=== PATIENT | male | born 1955 | race Caucasian/White ===

== ENCOUNTER 2022-04-10 10:19 | Outpatient (CLI) | payer MEDICARE, SELFPAY ==
[2022-04-10 21:50] LABS: Albumin* 4.3 g/dL (3.3-5.0); Chloride* 99 mmol/L (96-114)
[2022-04-10 21:51] LABS: Sodium* 138 mmol/L (135-149)
[2022-04-10 21:53] LABS: Carbon Dioxide* 30 mmol/L (20-32); Cholesterol* 125 mg/dL (90-199); Creatinine* 0.9 mg/dL (0.5-1.5); Estimated Glomerular Filt Rate 94 ml/min
[2022-04-10 21:54] LABS: Alanine Aminotransferase* 43 U/L (4-50); Alkaline Phosphatase* 62 U/L (40-150); Aspartate Amino Transferase* 35 U/L (12-35); Bilirubin Total* 0.6 mg/dL (0.1-1.5); Blood Urea Nitrogen* 12 mg/dL (7-30); Calcium* 9.7 mg/dL (8.4-10.6); Glucose* 114 mg/dL (60-115); HDL Cholesterol* 46 mg/dL (>=40); LDL Cholesterol Calculated 52 mg/dL (<100); Total Protein* 6.8 g/dL (6.0-8.3); Triglycerides* 135 mg/dL (40-149)
[2022-04-10 22:12] LABS: Creatinine Urine 68.2 mg/dL
[2022-04-10 22:27] LABS: Microalbumin Creatinine Ratio 10 mg/g (0-30); Microalbumin Urine 1 mg/dL
[2022-04-10 22:30] LABS: PSA Diagnostic* < 0.06 ng/mL (0.10-4.00)
== END 2022-04-10 10:20 | disposition home or self-care (01) ==
PROVIDERS: PCP Nurse Practitioner Family; Visit Provider Nurse Practitioner Family
DX: E11.9 Type 2 diabetes mellitus without complications (principal); I10 Essential (primary) hypertension; E78.5 Hyperlipidemia, unspecified; Z85.46 Personal history of malignant neoplasm of prostate
CPT/HCPCS: 80053; 80061; 82043; 82570; 84153; 84443

== ENCOUNTER 2022-10-04 10:21 | Outpatient (CLI) | payer MEDICARE, SELFPAY | END 2022-10-04 10:22 | disposition home or self-care (01) | PROVIDERS: PCP Nurse Practitioner Family; Visit Provider Nurse Practitioner Family | DX: E66.3 Overweight (principal); E56.9 Vitamin deficiency, unspecified; I10 Essential (primary) hypertension; E11.9 Type 2 diabetes mellitus without complications; Z12.5 Encounter for screening for malignant neoplasm of prostate | CPT/HCPCS: 83540; 83550; 84153; 85025 ==

== ENCOUNTER 2023-03-28 13:20 | Outpatient (CLI) | payer MEDICARE, SELFPAY ==
--- OUTSIDE RECORDS SUMMARY | 2023-03-28 13:24 | XMS_ITS ---
Author Name Unknown Organization [place] Address [facility] [place] [address] Care Team Providers Care Office Associate Name Role Phone Clarissa Gomez DO Primary Care Provider [phone] Faustino Cedeno MD Unavailable [phone] Zaida Ayoub APRN [facility] Unavailable Arturo Smith MD Unavailable [phone] Clarissa Gomez DO Unavailable Clarissa Gomez DO Unavailable Active Problems Problem Noted Date Diagnosed Date Sensorineural hearing loss, bilateral 06/20/2015 Adjustment disorder with anxiety 05/24/2015 Overview: May 24, 2015: Diagnosis made and psychosocial and contextual factor of work stress noted. Per note by Lizzy Santiago LP. May 19, 2015: Patient communicated concern over work-related stress and anxiety that has been building up (see telephone encounter). No significant mental health PMHx. Referral provided to behavioral health services by PCP, Britney Phillips MD. July 04, 2015 excellent response to SSRI therapy. Patient will probably discontinue counseling therapy. Continue Lexapro, follow-up in 6 months. Gout 01/12/2015 Diabetes mellitus type 2, controlled, without co mplications 12/16/2014 Overview: December 16, 2014 within guide lines, A1c 7.0, up from 6 months ago, 6.5, on single drug therapy. No secondary complications. Follow up 6 months. SCC (squamous cell carcinoma), face 07/31/2013 Overview: July 31, 2013 on face, followed by dermatology. GERD 02/01/2013 Overview: July 31, 2013 doing well on PPI therapy. EGD done 07/06, biopsies neg. One year refill. Vitamin D deficiency disease 07/20/2011 Overview: August 27, 2012 recheck in 3 months. Encounter for screening for malignant neoplasm o f colon 06/14/2011 Overview: EMERGENCY CARE PLAN Presenting Problem Signs and Symptoms Treatment Plan Questions or conerns during clinic hours I will call the clinic directly Questions or conerns outside clinic hours I will call the 24 hour nurse line at [phone] Patient needs to schedule an appointment I will call the 24 hour scheduling team at [phone] or clinic directly Same day treatment I will call the clinic first, nurse line if after hours, urgent care and express care if needed Overview: Added automatically from request for surgery [id number] Cancer, skin, 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 Coles Hyperlipidemia LDL goal <100 12/25/2009 Overview: January 30, 2013 on statin, LDL 66, repeat lipid panel in 12 months. Hypertension goal BP (blood pressure) < 140/80 0 07/02/2006 Overview: July 31, 2013 within guidelines, denies side effects. On 3 drug therapy, beta yann, diuretic, ARB. GFR: 65, K+: 4.1, microalbuminuria neg. Follow up 6 months. Overweight 07/02/2006 Overview: August 27, 2012 Body mass index is 31.15 kg/(m^2). Problem list name updated by automated process. Provider to review Current Oncology Plans No current plan information found. Past Plans No past plan information found. Radiation Treatments * No radiation treatments are documented for this patient in [facility]. Treatments may have been administered in another system. Treatment Summaries Prostate cancer (H)* Cancer Treatment Plan and Summary - Prostate [facility] General Information Patient Name Alden Bowden Patient 1955 Patient phone [phone] (home) Email [email or web address] Primary Care Provider Clarissa Gomze Christopher Allan, MD Radiation Oncologist N/A Medical Oncologist N/A Other Providers Cancer Diagnosis Information Diagnosis Prostate cancer (H) Diagnosis Date 02/02/2019 Staging Information [id number] Familial Cancer Risk Assessment Genetic Counseling No Treatment Summary Surgery Robot-assisted laparoscopic radical prostatectomy Surgery Date: 07/13/2019 Pathology acinar adenocarcinoma and Thayne Score: 3 + 4 Radiation No Systemic No Ongoing Treatment No *The above summary reflects your cancer treatment as documented in our chart at the time you received this summary. If you had additional treatment at another care center we would advise you to obtain this information from that care center. Follow-up Care Plan Persistent symptoms or side effects at completion of treatment These symptoms may include, but not limited to: fatigue, numbness/tingling, psychosocial, pain, memory/concentration issues, urinary incontinence and erectile dysfunction. Additional provider notes, if applicable Your follow up care plan is designed to inform you and your primary care provider the recommended and suggested follow up, cancer screening and routine health maintenance that is needed to maintain optimal health. Possible late and/or assisted effects that someone with this type of cancer and treatment may experience: bone effects heart effects fertility effects memory and concentration pain lymphedema nervous system changes If you would like to discuss specific late and/or terminal makeup operator effects related to your treatment, please use the following website to make an appointment in the Cancer Survivor Program: [email or web address] OR call These symptoms should be brought to the attention of your provider: 1. Anything that represents a brand new symptom; 2. Anything that represents a persistent symptom; 3. Anything that you are worried about that might be related to your cancer coming back. Coordinating Provider When/How Often Primary Care Provider Please continue to see your primary care provider for all general health carerecommended for a patient your age, including cancer screening tests. Any symptoms should be brought to the attention of your provider. Medical Oncologist and/or Surgeon Every 6 months for 5 years, then yearly Radiation Oncologist As directed Surgeon As directed Other See eye doctor and dentist routinely Cancer Surveillance or Other Recommended Related Tests Test What/When/How Often PSA Every 3 months for 1 year, then every 6 months for years 2-5, then yearly Cancer survivors may experience issues with the areas listed below. If you have any concerns in these or other areas, please speak with your providers or nurses to find out how you can get help with them. Anxiety or depression Emotional and mental health Fatigue Fertility Financial advice or assistance Insurance Lymphedema Memory or concentration loss Parenting Physical functioning School or work Sexual functioning Stopping smoking Weight changes Other A number of lifestyle/behaviors can affect your ongoing health, including the risk for the cancer coming back or developing another cancer. Discuss these recommendations with your provider or nurse: Alcohol use Diet Physical activity Sun screen use Tobacco use/cessation Weight management (loss/gain) Resources you may be interested in: [facility] Survivorship Resources http://survivorship.[facility] [place] [employer] www.cancer.org [place] [employer] of Clinical Oncology www.asco.org/practice-guidelines/resources-patients National Cancer [place] www.cancer.gov [employer] www.livestrong.org www.cancer.net [place] for [employer] Research www.aicr.org This Survivorship Care Plan is a cancer treatment summary and follow up plan and is provided to youto keep with your health care records and to share with your primary care provider or any of your other providers. Resolved Problems Problem Noted Date Diagnosed Date Resolved Date Somatic dysfunction of pelvis region 07/29/2019 10/07/2019 Prostate cancer 04/06/2019 10/07/2019 Overview: Added automatically from request for surgery [id number] Lumbar radiculopathy 03/12/2019 020 Elevated uric acid in blood 09/10/2014 11/07/2020 AK (actinic keratosis) 01/14/200808/27 Acute Gouty Arthropathy 11/13/2007 12/09/2012 Chronic cough relieved with Prevacid 04/03/2007 02/01/2013 Overview: August 04, 2007 Meds: Prevacid - controls cough GERD 07/02/2006 08/27/2012 Overview: April 03, 2007 Meds: Prevacid 30 - consider bid trial for chronic cough When off med - severe reflux and Vomiting
--- OUTSIDE RECORDS SUMMARY | 2023-03-28 13:24 | XMS_ITS | Referral Summary ---
Author Name Unknown Organization [place] Address [address] [place] [address]. [place] [address] Care Team Providers Care Adolescent Specialist Name Role Phone Clarissa Gomez DO Primary Care Provider Faustino Cedeno MD Unavailable [phone] Zaida Ayoub APRN, CNP Unavailable [phone] Arturo mSith MD Unavailable [phone] Clarissa Gomez DO Unavailable Clarissa Gomez DO Unavailable [phone] Allergies No known active allergies Medications Medication Sig Dispensed Refills Start Date End Date Status ASPIRIN 81 MG OR TABS Take 81 mg by mouth every evening 0 Active VITAMIN B-12 PO Take 1 tablet by mouth once a week 0 Active VITAMIN D, CHOLECALCIFEROL, POIndications:Right-s ided low back pain with right-sided sciatica Take 2,000 Units by mouth every evening 0 Active magnesium 500 MG TABS Take 500 mg by mouth once a week 0 Active Ascorbic Acid (VITAMIN C) 500 MG CAPS Take 500 mg by mouth once a week 0 Active glipiZIDE (GLUCOTROL XL) 2.5 MG 24 hr tabletIndications:Con trolled type 2 diabetes mellitus without complication, without long-term current use of insulin (H) TAKE 1 TABLET DAILY 90 tablet 3 05/02/2021 Active allopurinol (ZYLOPRIM) 300 MG tabletIndications:Gou t of multiple sites, unspecified cause, unspecified chronicity Take 1 tablet (300 mg) by mouth daily 90 tablet 3 07/13/2021 Active esomeprazole (NEXIUM) [address] capsuleIndications:Ga stroesophageal reflux disease without esophagitis TAKE 1 CAPSULE DAILY 30 TO 60 MINUTES BEFORE EATING 90 capsule 3 07/13/2021 Active hydrochlorothiazide (HYDRODIURIL) 25 MG tabletIndications:Hyp ertension goal BP (blood pressure) < 140/80 Take 1 tablet (25 mg) by mouth daily 90 tablet 3 07/13/2021 Active irbesartan (AVAPRO) 150 MG tabletIndications:Hyp ertension goal BP (blood pressure) < 140/80 Take 1 tablet (150 mg) by mouth At Bedtime 90 tablet 3 07/13/2021 Active metoprolol succinate ER (TOPROL XL) 100 MG 24 hr tabletIndications:Hyp ertension goal BP (blood pressure) < 140/80 TAKE ONE AND ONE-HALF TABLETS DAILY 135 tablet 3 07/13/2021 Active rosuvastatin (CRESTOR) 20 MG tabletIndications:Hyp erlipidemia LDL goal <100 TAKE 1 TABLET DAILY 90 tablet 3 12/26/2021 Active metFORMIN (GLUCOPHAGE XR) 500 MG 24 hr tabletIndications:Con trolled type 2 diabetes mellitus without complication, without long-term current use of insulin (H) TAKE 2 TABLETS TWICE A DAY 360 tablet 0 01/19/2022 Active Active Problems Problem Noted Date Diagnosed Date [...] call the 24 hour nurse line at [phone] Patient needs to schedule an appointment I will call the 24 hour scheduling team at [phone] or clinic directly Same day treatment I will call the clinic first, nurse line if after hours, urgent care and express care if needed Overview: Added automatically from request for surgery [id number] Cancer, skin, squamous cell - nasal bridge [...] updated by automated process. Provider to review Resolved Problems Problem Noted Date Diagnosed Date Resolved Date Somatic dysfunction of pelvis region 07/29/2019 10/07/2019 Prostate cancer 04/06/2019 10/07/2019 Overview: Added automatically from request for surgery [id number] Lumbar radiculopathy 03/12/2019 020 Elevated uric acid in blood 09/10/2014 11/07/2020 AK (actinic keratosis) 01/14/200808/27 Acute Gouty Arthropathy 11/13/2007 12/09/2012 Chronic cough relieved with Prevacid 04/03/2007 02/01/2013 Overview: August 04, 2007 Meds: Prevacid - controls cough GERD 07/02/2006 08/27/2012 Overview: April 03, 2007 Meds: Prevacid 30 - consider bid trial for chronic cough When off med - severe reflux and Vomiting Immunizations Name Administration Dates Next Due COVID-19 Vaccine (Shay) 05/01/2020 Influenza (IIV3) PF 01/29/2012, 1,02/02/2010,2006 Influenza Vaccine 18-64 (Flublok) 11/19/2018, Influenza Vaccine 65+ (Fluzone HD) 11/19/2020 Influenza Vaccine >6 months,quad, PF ,11/17/2015,11/03/2014,2013,11/05/2012 Influenza Vaccine, 6+MO IM (QUADRIVALENT W/PRESERVATIVES) 11/03/2014 Influenza, seasonal, injectable, PF 01/29/2012,1 04/05/2009,12/14/2008 Pneumo Conj 13-V (2010&after) 09/17/2014 Pneumococcal 23 valent 01/18/2020,02/22/2014 TD,PF 7+ (Tenivac) 07/02/1997 TDAP Vaccine (Adacel) 04/14/2018,04/03/2007 Td (Adult), Adsorbed 06/02/2002 Varicella Pt Report Hx of Varicella/Chicken Pox 04/20/1960 Zoster recombinant adjuvante d (SHINGRIX) 11/19/2018 Zoster vaccine, live 11/17/2015 Social History Tobacco Use Types Packs/Day Years Used Date Smoking Tobacco: Never Smokeless Tobacco: Never Tobacco Cessation:Counseling Given: Yes Alcohol Use Standard Drinks/Week Comments Yes 0 (1 standard drink = 0.6 oz pur e alcohol) occ PHQ-2 Answer Date Recorded PHQ-2 Score 0 07/13/2021 Adolescent Education Answer Date Record ed Getting School Help Needed Not on file 12/11 Sex and Gender Information Value Date Recorded Sex Assigned at Not on file Gender Identity Not on file Sexual Orientation Not on file Last Filed Vital Signs Vital Sign Reading Time Taken Comments Blood Pressure 134/82 07/13/2021 2:07 PM CDT Pulse 85 07/13/2021 2:07 PM CDT Temperature 36.7 ??C (98.1 ??F) 07/13/2021 2:07 PM CD T Respiratory Rate 16 01/18/2020 1:06 PM PROSTHODONTIST/OWNER Oxygen Saturation 98% 07/13/2021 2:07 PM CDT Inhaled Oxygen Concentration - - Weight 88.3 kg (194 lb 9.6 oz) 07/13/2021 2:07 P M CDT Height 166.4 cm (5' 5.5) 07/13/2021 2:07 PM CDT Body Mass Index 31.89 07/13/2021 2:07 PM CDT Plan of Treatment Not on file Advance Directives For more information, please contact: [phone] Latest Code Status on File Code Status Date Activated Date Inactivated Comments Full Code 07/13/2019 4:33 PM 07/15/2019 6:05 PM Question Answer Comments Code status determined by: Discussion wi th patient/legal decision maker Care Teams Adolescent Specialist Relationship Specialty Start Date End Date Clarissa Gomez DO [address] [facility] [place] [address] PCP - General Family Practice 02/14/17 Faustino Cedeno MD [address] [place] [address] Radiation Oncology 02/19/19 Zaida Ayoub APRN AUTOMOTIVE PRODUCT ENGINEER [address] [place] [address] Nurse Practitioner Nurse Practitioner 02/19/19 Arturo Smith MD [address] [facility] [address] [place], [place] [address] Urology 02/19/19 Clarissa Gomez DO [address] [facility] [place] [address] Referring Physician Family Practice 04/06/19 [place] [address] [address] [facility] [place] [address] Assigned PCP 08/14/20
--- OUTSIDE RECORDS SUMMARY | 2023-03-28 13:24 | XMS_ITS | Clinical Summary ---
Author Name Unknown Organization [facility] Address [address] [place] [address]. [place] [address] Care Team Providers Care Health Information Administrator Name Role Phone Clarissa Gomez DO Primary Care Provider [phone] Faustino Cedeno MD Unavailable [phone] Zaida Ayoub APRN, CNP Unavailable Arturo Smith MD Unavailable [phone] Clarissa Gomez DO Unavailable [phone] Clarissa Gomez DO Unavailable [phone] Allergies No known active allergies Medications [...] call the 24 hour nurse line at [phone] Patient needs to schedule an appointment I will call the 24 hour scheduling team at [phone] or clinic directly Same day treatment I will call the clinic first, nurse line if after hours, urgent care and express care if needed Overview: Added automatically from request for surgery [id number] Cancer, skin, squamous cell - nasal bridge [...] Overview: Added automatically from request for surgery [id number] Lumbar radiculopathy 03/12/2019 020 Elevated uric acid in blood 09/10/2014 11/07/2020 AK (actinic keratosis) 01/14/200808/27 Acute Gouty Arthropathy 11/13/2007 12/0 09/2012 Chronic cough relieved with Prevacid 04/03/2007 02/01/2013 [...] d (SHINGRIX) 11/19/2018 Zoster vaccine, live 11/17/2015 Family History Medical History Relation Comments Asthma Father Cirrhosis Father Coronary Artery Disease Maternal Grandfather Coronary Artery Disease Maternal Grandmother Other Cancer Mother C.A.D. Other Cerebrovascular Disease Paternal Grandfather Diabetes Paternal Grandfather Other Cancer Paternal Grandmother Other Cancer Sister Relation Status Comments Father Maternal Grandfather Maternal Grandmother Mother Other Paternal Grandfather Paternal Grandmother Sister Social History Tobacco Use Types Packs/Day Years [...] T Respiratory Rate 16 01/18/2020 1:06 PM SAW REPAIRER Oxygen Saturation 98% 07/13/2021 2:07 PM CDT Inhaled Oxygen Concentration - - Weight 88.3 kg (194 lb 9.6 oz) 07/13/2021 2:07 P M CDT Height 166.4 cm (5' 5.5) 07/13/2021 2:07 PM CDT Body Mass Index 31.89 07/13/2021 2:07 PM CDT Plan of Treatment Health Maintenance Due Date Last Done Comments ANNUAL REVIEW OF HM ORDERS 1955 CT COLONOGRAPHY 1955 FIT 1955 FLEX SIG 1955 sDNA (Cologuard) 1955 RSV VACCINE ( & 60+) (1 - 1-dose 60+ series) 2014 ZOSTER IMMUNIZATION (3 of 3) 01/14/2019 11/19/2018, 11/17/2015 AORTIC ANEURYSM SCREENING (SYSTEM ASSIGNED) 08/03/2019 A1C 11/30/2021 05/31/2021, 09/25, 07/06/2020, Additional history exists BMP 05/31/2022 05/31/2021, 06/25, 10/15/2019, Additional history exists DIABETIC FOOT EXAM 07/13/2022 07/13/2021, 0 07/13/2021, 10/17/2018, Additional history exists FALL RISK ASSESSMENT 07/13/2022 07/13/2021, 07/11/2020, 01/18/2020 LIPID 07/13/2022 07/13/2021, 06/25, 04/24/2019, Additional history exists MEDICARE ANNUAL WELLNESS VISIT 07/13/2022 07/13/2021, 07/11/2020, 09/19/2017, Additional history exists MICROALBUMIN 07/13/2022 07/13/2021, 06/25, 04/24/2019, Additional history exists COLONOSCOPY 08/16/2022 08/16/2017, 01/26, 07/26/2005 COLORECTAL CANCER SCREENING 08/16/2022 COVID-19 Vaccine ( season) 2022 05/01/2020 INFLUENZA VACCINE (#1) 2022 , 11/19/2020, 11/19/2018, Additional history exists PHQ-2 (once per calendar year) 2023 07/13/2021, 07/11/2020, 02/23/2020, Additional history exists EYE EXAM 01/15/2024 01/14/2023, 12/26, 01/08/2022, Additional history exists ADVANCE CARE PLANNING 07/15/2025 07/15/2020, 011 DTAP/TDAP/TD IMMUNIZATION (3 - Td or Tdap) 04/14/2028 04/14/2018, 04/03/2007, 06/02/2002, Additional history exists HEPATITIS C SCREENING Completed 03/04/2017 Pneumococcal Vaccine: 65+ Years Completed 01/18/2020, 09/17/2014, 02/22/2014 HPV IMMUNIZATION Aged Out No longer e ligible based on patient's age to complete this topic IPV IMMUNIZATION Aged Out No longer e ligible based on patient's age to complete this topic MENINGITIS IMMUNIZATION Aged Out No l onger eligible based on patient's age to complete this topic RSV MONOCLONAL ANTIBODY Aged Out No l onger eligible based on patient's age to complete this topic Advance Directives For more information, please contact: [phone] Latest Code Status on File Code Status Date Activated Date Inactivated Comments Full Code 07/13/2019 4:33 PM 07/15/2019 6:05 PM Question Answer Comments Code status determined by: Discussion wi th patient/legal decision maker Care Teams Health Information Administrator Relationship Specialty Start Date End Date Clarissa Gomez DO [address] [facility] [place] [address] PCP - General Family Practice 02/14/17 Faustino Cedeno MD [address] [place] [address] Radiation Oncology 02/19/19 Zaida Ayoub, HYDRAULIC ROCK DRILL OPERATOR SURVEY AND MAPPING TECHNICIAN [address] [place] [address] Nurse Practitioner Nurse Practitioner 02/19/19 Arturo Smith MD [address] [facility] [address] [place] [address] Urology 02/19/19 Clarissa Gomez DO [address] [facility] [place] [address] Referring Physician Family Practice 04/06/19 [place] [address] [address] [address] Assigned PCP 08/14/20
--- OUTSIDE RECORDS SUMMARY | 2023-03-28 13:25 | XMS_ITS | Encounter Summary ---
Author Name Unknown Organization [place] Address [facility] [place] [address] Care Team Providers Care Tufting Machine Operator Single Needle Name Role Phone Clarissa Gomez DO Primary Care Provider Clarissa Gomez DO Unavailable [phone] Faustino Cedeno MD Unavailable Zaida Ayoub APRN DIRECTOR OF CORPORATE SALES Unavailable Arturo Smith MD Unavailable [phone] Clarissa Gomez DO Unavailable [phone] Angela Reid RN Unavailable [phone] Clarissa Gomez DO Unavailable [phone] Faustino Cedeno MD Unavailable Arturo Smith MD Unavailable Guerrero Aguilar DPM Unavailable Clarissa Gomez DO Unavailable [phone] Cheri Macario Unavailable Encounter Details Date Type Department Care Team (Late st Contact Info) Description 01/30/2019 [facility] [address] [address] Yana Ramos, RN Social History Tobacco Use Types Packs/Day Years Used Date Smoking Tobacco: Never Smokeless Tobacco: Never Alcohol Use Standard Drinks/Week Comments Yes 0 (1 standard drink = 0.6 oz pur e alcohol) PHQ-2 Answer Date Recorded PHQ-2 Score 0 03/05/2018 Sex and Gender Information Value Date Recorded Sex Assigned at Not on file Gender Identity Not on file Sexual Orientation Not on file documented as of this encounter Miscellaneous Notes * Telephone Encounter - Shania Peng - 01/30/2019 10:36 AM CST Pt called and read back message also let him know about his prescription. Shania Peng CSS Float UCTION LINE documented in this encounter Plan of Treatment Not on file documented as of this encounter Visit Diagnoses Not on filedocumented in this encounter Additional Health Concerns Infection Onset Date Last Indicated Resolved Time Rule Out COVID-19 07/10/2019 07/10/2019 07/12/2019 7:17 AM CDT Assessment Noted Time PHQ-9 Depression Total Score: 1 09/19/19 17 7:21 AM CDT documented as of this encounter Care Teams Tufting Machine Operator Single Needle Relationship Specialty Start Date End Date Clarissa Gomez DO [address] [facility] [place] [address] PCP - General Family Practice 02/14/17 [place] [address] [place] [address] Assigned PCP 08/23/19 08/13/20 Faustino Cedeno MD [address] [place] [address] Radiation Oncology 02/19/19 Zaida Ayoub APRN CNP [address] [place] [address] Nurse Practitioner Nurse Practitioner 02/19/19 Arturo Smith MD [address] [place] [address] Urology 02/19/19 Clarissa Gomez DO [address] [facility] [address] [place] [address] Referring Physician Family Practice 04/06/19 Angela Reid, FREDIS Registered Nurse Urology 04/06/19 09/11/22 [place] [address] [address] [address] Assigned PCP 07/01/16 08/22/19 Faustino Cedeno MD [address] [place] [address] Assigned Cancer Care Provider 12/18/19 09/06/20 Arturo Smith MD [address] [place] [address] Assigned Surgical Provider 12/18/19 10/08/20 Guerrero Aguilar DPM [address] [place] [address] Assigned Musculoskeletal Provider 01/31/20 08/25/21 [place] [address] [address] [address] Assigned PCP 08/14/20 Cheri Macario PA [facility] Urology [address] [place] [address] Assigned Surgical Provider 10/09/20 08/25/21 documented as of this encounter
--- OUTSIDE RECORDS SUMMARY | 2023-03-28 13:25 | XMS_ITS | Encounter Summary ---
Author Name Unknown Organization [place] Address [facility] [place] [address] Care Team Providers Care Diesel Pile Driver Operator Name Role Phone Clarissa Gomez DO Primary Care Provider Clarissa Gomez DO Unavailable [phone] Faustino Cedeno MD Unavailable Zaida Ayoub APRN RECLAMATION SUPERVISOR Unavailable [phone] Arturo Smith MD Unavailable [phone] Clarissa Gomez DO Unavailable Angela Reid RN Unavailable [phone] Clarissa Gomez DO Unavailable Faustino Cedeno MD Unavailable Arturo Smith MD Unavailable [phone] Guerrero Aguilar DPM Unavailable Clarissa Gomez DO Unavailable Cheri Macario Unavailable [phone] Encounter Details Date Type Department Care Team (Late st Contact Info) Description 07/06/2019 MyC Medical Advice [facility] Urology and Inst for Prostate and Urologic Cancers [address] [facility] [address] [place] [address] Angela Reid, RN Social History Tobacco Use Types Packs/Day Years Used Date Smoking Tobacco: Never Smokeless Tobacco: Never Alcohol Use Standard Drinks/Week Comments Yes 0 (1 standard drink = 0.6 oz pur e alcohol) PHQ-2 Answer Date Recorded PHQ-2 Score 0 03/05/2018 Sex and Gender Information Value Date Recorded Sex Assigned at Not on file Gender Identity Not on file Sexual Orientation Not on file COVID-19 Exposure Response Date Recorded In the last month, have you been in contact with someone who was confirmed or suspected to have Coronavirus / COVID-19? No / Unsure 07/06/2019 1:49 PM CDT documented as of this encounter Plan of Treatment Not on file documented as of this encounter Visit Diagnoses Not on filedocumented in this encounter Additional Health Concerns Infection Onset Date Last Indicated Resolved Time Rule Out COVID-19 07/10/2019 07/10/2019 07/12/2019 7:17 AM CDT Assessment Noted Time PHQ-9 Depression Total Score: 1 09/19/19 17 7:21 AM CDT documented as of this encounter Care Teams Diesel Pile Driver Operator Relationship Specialty Start Date End Date Clarissa Gomez DO [address] [facility] [place] [address] PCP - General Family Practice 02/14/17 [place] [address] [place] [address] Assigned PCP 08/23/19 08/13/20 Faustino Cedeno MD [address] [place] [address] Radiation Oncology 02/19/19 Zaida Ayoub APRN RECLAMATION SUPERVISOR [address] [place] [address] Nurse Practitioner Nurse Practitioner 02/19/19 Arturo Smith MD [address] [place] [address] Urology 02/19/19 Clarissa Gomez DO [address] [facility] [place] [address] Referring Physician Family Practice 04/06/19 Angela Reid, RN Registered Nurse Urology 04/06/19 09/11/22 [place] [address] [address] [address] Assigned PCP 07/01/16 08/22/19 Faustino Cedeno MD [address] [place] [address] Assigned Cancer Care Provider 12/18/19 09/06/20 Arturo Smith MD [address] [place] [address] [address] [place] [address] Assigned Surgical Provider 12/18/19 10/08/20 Guerrero Aguilar DPM [address] [place] [address] Assigned Musculoskeletal Provider 01/31/20 08/25/21 [place] [address] [address] [address] Assigned PCP 08/14/20 Cheri Macario PA [facility] Urology 9 [place] [address] Assigned Surgical Provider 10/09/20 08/25/21 documented as of this encounter
--- OUTSIDE RECORDS SUMMARY | 2023-03-28 13:25 | XMS_ITS | Encounter Summary ---
Author Name Unknown Organization [place] Address [address] [place] [address]. [place] [address] Care Team Providers Care Licensed Physical Therapist Name Role Phone Alexandro Rader MD Primary Care Provider [phone] Britney Phillips MD Primary Care Provider [phone] Clarissa Gomez DO Primary Care Provider [phone] Clarissa Gomez DO Unavailable Clarissa Gomez DO Unavailable Faustino Cedeno MD Unavailable Zaida Ayoub APRN FLEET SERVICE CLERK Unavailable Arturo Smith MD Unavailable [phone] Clarissa Gomez DO Unavailable [phone] Angela Reid RN Unavailable [phone] Clarissa Gomez DO Unavailable Faustino Cedeno MD Unavailable [phone] Arturo Smith MD Unavailable [phone] Guerrero Aguilar DPM Unavailable [phone] Clarissa Gomez DO Unavailable Cheri Macario Unavailable [phone] Encounter Details Date Type Department Care Team (Late st Contact Info) Description 04/24/2012 [facility] Armand Carter [address] [facility] [place] [id number] Kimmy Barry Social History Tobacco Use Types Packs/Day Years Used Date Smoking Tobacco: Never Smokeless Tobacco: Never Alcohol Use Standard Drinks/Week Comments Yes 0 (1 standard drink = 0.6 oz pur e alcohol) Sex and Gender Information Value Date Recorded Sex Assigned at Not on file Gender Identity Not on file Sexual Orientation Not on file documented as of this encounter Plan of Treatment Not on file documented as of this encounter Visit Diagnoses Not on filedocumented in this encounter Additional Health Concerns Infection Onset Date Last Indicated Resolved Time Rule Out COVID-19 07/10/2019 07/10/2019 07/12/2019 7:17 AM CDT documented as of this encounter Care Teams Licensed Physical Therapist Relationship Specialty Start Date End Date Alexandro Rader MD PCP - General 06/26/06 08/07/12 Britney Phillips MD PCP - General Family Practice 08/08/12 02/13/17 Clarissa Gomez DO [address] [facility] [place] [address] PCP - General Family Practice 02/14/17 [place] [address] [address] [address] PCP - Assigned PCP 07/01/16 04/29/18 [place] [address] [address] [address] Assigned PCP 08/23/19 08/13/20 Faustino Cedeno MD [address] [place] [address] Radiation Oncology 02/19/19 Zaida Ayoub APRN FLEET SERVICE CLERK [address] [place] [address] Nurse Practitioner Nurse Practitioner 02/19/19 Arturo Smith MD [address] [place] [address] [address] [place] [address] Urology 02/19/19 Clarissa Gomez DO [address] [facility] [place] [address] Referring Physician Family Practice 04/06/19 Angela Reid, FREDIS Registered Nurse Urology 04/06/19 09/11/22 [place] [address] [place] [address] Assigned PCP 07/01/16 08/22/19 Faustino Cedeno MD [address] [place] [address] Assigned Cancer Care Provider 12/18/19 09/06/20 Arturo Smith MD [address] [place] [address] Assigned Surgical Provider 12/18/19 10/08/20 Guerrero Aguilar, DPM [address] [place] [address] Assigned Musculoskeletal Provider 01/31/20 08/25/21 [place] [address] [address] [place] [facility] [place] [address] Assigned PCP 08/14/20 Cheri Macario PA [facility] Urology [address] [place] [address] Assigned Surgical Provider 10/09/20 08/25/21 documented as of this encounter
--- OUTSIDE RECORDS SUMMARY | 2023-03-28 13:25 | XMS_ITS | Encounter Summary ---
Author Name Unknown Organization [place] Address [facility] [place] [address] Care Team Providers Care Site Superintendent Name Role Phone Clarissa Gomez DO Primary Care Provider [phone] Faustino Cedeno MD Unavailable Zaida Ayoub APRN, CNP Unavailable Arturo Smith MD Unavailable Clarissa Gomez DO Unavailable [phone] Angela Reid RN Unavailable [phone] Clarissa Gomez DO Unavailable Encounter Details Date Type Department Care Team (Late st Contact Info) Description 04/12/2022 [facility] Medical Advice [facility] [address] [place] [id number] [place] [address] [place] [address] Social History Tobacco Use Types Packs/Day Years Used Date Smoking Tobacco: Never Smokeless Tobacco: Never Alcohol Use Standard Drinks/Week Comments Yes 0 (1 standard drink = 0.6 oz pur e alcohol) occ PHQ-2 Answer Date Recorded PHQ-2 Score 0 07/13/2021 Sex and Gender Information Value Date Recorded Sex Assigned at Not on file Gender Identity Not on file Sexual Orientation Not on file documented as of this encounter Plan of Treatment Not on file documented as of this encounter Visit Diagnoses Not on filedocumented in this encounter Additional Health Concerns Assessment Noted Time PHQ-9 Depression Total Score: 1 09/19/19 17 7:21 AM CDT documented as of this encounter Care Teams Site Superintendent Relationship Specialty Start Date End Date Clarissa Gomez DO [address] [facility] [place] [address] PCP - General Family Practice 02/14/17 Faustino Cedeno MD [address] [place] [address] Radiation Oncology 02/19/19 Zaida Ayoub APRN CHROMOSOMAL DISORDERS COUNSELOR [address] [place] [address] Nurse Practitioner Nurse Practitioner 02/19/19 Arturo Smith MD [address] [place] [address] [address] [place] [address] Urology 02/19/19 Clarissa Gomez DO [address] [facility] [address] Referring Physician Family Practice 04/06/19 Angela Reid, RN Registered Nurse Urology 04/06/19 09/11/22 [place] [address] [address] [facility] [place] [address] Assigned PCP 08/14/20 documented as of this encounter
--- OUTSIDE RECORDS SUMMARY | 2023-03-28 13:25 | XMS_ITS | Encounter Summary ---
Author Name Unknown Organization [place] Address [facility] [place] [address] Care Team Providers Care Depot Agent Name Role Phone Clarissa Gomez DO Primary Care Provider Clarissa Gomez DO Unavailable Faustino Cedeno MD Unavailable [phone] Zaida Ayoub APRN FLIGHT SIMULATOR TEACHER Unavailable [phone] Arturo Smith MD Unavailable [phone] Clarissa Gomez DO Unavailable [phone] Angela Reid RN Unavailable [phone] Faustino Cedeno MD Unavailable [phone] Arturo Smith MD Unavailable [phone] Guerrero Aguilar DPM Unavailable Clarissa Gomez DO Unavailable Cheri Macario Unavailable [phone] Encounter Details Date Type Department Care Team (Late st Contact Info) Description 05/12/2020 [facility] [address] [place] [address] Slime Castellanos CMA Social History Tobacco Use Types Packs/Day Years [...] documented as of this encounter Care Teams Depot Agent Relationship Specialty Start Date End Date Clarissa Gomez DO [address] [facility] [place] [address] PCP - General Family Practice 02/14/17 [place] [address] [place] [address] Assigned PCP 08/23/19 08/13/20 Faustino Cedeno MD [address] [place] [address] Radiation Oncology 02/19/19 Zaida Ayoub APRN FLIGHT SIMULATOR TEACHER [address] [place] [address] Nurse Practitioner Nurse Practitioner 02/19/19 Arturo Smith MD [address] [place] [address] [address] [place] [address] Urology 02/19/19 Clarissa Gomez DO [address] [facility] [place] [address] Referring Physician Family Practice 04/06/19 Angela Reid, RN Registered Nurse Urology 04/06/19 09/11/22 Faustino Cedeno MD [address] [place] [address] Assigned Cancer Care Provider 12/18/19 09/06/20 Arturo Smith MD [address] [place] [address] [address] [place], [place] [address] Assigned Surgical Provider 12/18/19 10/08/20 Guerrero Aguilar DPM [address] [place], [place] [address] Assigned Musculoskeletal Provider 01/31/20 08/25/21 [place] [address] [place] [address] Assigned PCP 08/14/20 Cheri Macario PA [facility] Urology [address] [place], [place] [address] Assigned Surgical Provider 10/09/20 08/25/21 documented as of this encounter
--- OUTSIDE RECORDS SUMMARY | 2023-03-28 13:25 | XMS_ITS | Encounter Summary ---
Author Name Unknown Organization [place] Address [facility] [place] [address] Care Team Providers Care Portrait Consultant Name Role Phone Clarissa Gomez DO Primary Care Provider Clarissa Gomez DO Unavailable Faustino Cedeno MD Unavailable [phone] Zaida Ayoub APRN, CNP Unavailable Arturo Smith MD Unavailable [phone] Clarissa Gomez DO Unavailable [phone] Angela Reid RN Unavailable [phone] Clarissa Gomez DO Unavailable Faustino Cedeno MD Unavailable [phone] Arturo Smith MD Unavailable [phone] Guerrero Aguilar DPM Unavailable [phone] Clarissa Gomez DO Unavailable Cheri Macario Unavailable Encounter Details Date Type Department Care Team (Late st Contact Info) Description 01/26/2019 MyC Medical Advice [facility] Urology and Inst for Prostate and Urologic Cancers [address] [facility] [address] [place] [address] Shun, Demetra, DAMPPROOFER Social History Tobacco Use Types Packs/Day Years [...] documented as of this encounter Care Teams Portrait Consultant Relationship Specialty Start Date End Date Clarissa Gomez DO [address] [facility] [place] [address] PCP - General Family Practice 02/14/17 [place] [address] [place] [address] Assigned PCP 08/23/19 08/13/20 Faustino Cedeno MD [address] [place] [address] Radiation Oncology 02/19/19 Zaida Ayoub APRN MUSHROOM GROWER [address] [place] [address] Nurse Practitioner Nurse Practitioner 02/19/19 Arturo Smith MD [address] [facility] [address] [place] [address] Urology 02/19/19 Clarissa Gomez DO [address] [facility] [place] [address] Referring Physician Family Practice 04/06/19 Angela Reid, RN Registered Nurse Urology 04/06/19 09/11/22 [place] [address] [place] [address] Assigned PCP 07/01/16 08/22/19 Faustino Cedeno MD [address] [place] [address] Assigned Cancer Care Provider 12/18/19 09/06/20 Arturo Smith MD [address] [place] [address] [address] [place], [place] 15[address] Assigned Surgical Provider 12/18/19 10/08/20 Guerrero Augilar DPM [address] [place] [address] Assigned Musculoskeletal Provider 01/31/20 08/25/21 [place] [address] [place] [address] Assigned PCP 08/14/20 Cheri Macario PA [facility] Urology [address] [place], [place] [address] Assigned Surgical Provider 10/09/20 08/25/21 documented as of this encounter
--- OUTSIDE RECORDS SUMMARY | 2023-03-28 13:25 | XMS_ITS | Encounter Summary ---
Author Name Unknown Organization [place] Address [facility] [place] [address] Care Team Providers Care Space And Storage Clerk Name Role Phone Clarissa Gomez DO Primary Care Provider [phone] Clarissa Gomez DO Unavailable [phone] Faustino Cedeno MD Unavailable Zaida Ayoub APRN, CNP Unavailable Arturo Smith MD Unavailable [phone] Clarissa Gomez DO Unavailable Angela Reid RN Unavailable [phone] Clarissa Gomez DO Unavailable Faustino Cedeno MD Unavailable Arturo Smith MD Unavailable Guerrero Aguilar DPM Unavailable Clarissa Gomez DO Unavailable [phone] Cheri Macario Unavailable Reason for Visit * Reason Onset Date Comments Medication Request 01/29/2019 Encounter Details Date Type Department Care Team (Late st Contact Info) Description 01/29/2019 Telephone [facility] [address] [place] [address] [place] [address] [place] [place] [address] Medication Request Social History Tobacco Use Types Packs/Day Years [...] encounter Miscellaneous Notes * Telephone Encounter - Yana Ramos RN - 01/30/2019 11:39 AM CST Pt called and read back message also let him know about his prescription. ?? Shania Peng CSS Float OID PROGRAMMER * Telephone Encounter - Yana Ramos RN - 01/30/2019 9:05 AM CST Call placed to patient, voicemail is full and cannot accept messages Chef Surfingt message also sent. Yana Ramos RN OID PROGRAMMER * Telephone Encounter - Clarissa Gomez DO - 01/30/2019 7:36 AM CST Please call [facility]. I did send the cpro prescription for him. He should take it as instructed in his pre-op notes from urology. He needs to be very cautious regarding low blood sugar. The combination of this medication and his glipizide can make low blood sugars more of an issue. He should make sure he always has a glucose source and his meter with him so he can check and act on a low sugar if needed. If this is a problem he should let me know right away. Clarissa Gomez DO OID PROGRAMMER * Telephone Encounter - Alejandra Garcia - 01/29/2019 2:29 PM CST Patient called and says he got the instructions for his prostate biopsy and it says he has to take Cipro 500mg tablets the day before the procedure x 3days. Please send to the [facility]. Patient would like to medicinal plant picker tomorrow 01/30. [place] pathology secretary OID PROGRAMMER documented in this encounter Plan of Treatment Not on file documented as of this encounter Visit Diagnoses Diagnosis Elevated prostate specific antigen (PSA)- Primary documented in this encounter Additional Health Concerns Infection Onset Date Last Indicated Resolved Time Rule Out COVID-19 07/10/2019 07/10/2019 07/12/2019 7:17 AM CDT Assessment Noted Time PHQ-9 Depression Total Score: 1 09/19/19 17 7:21 AM CDT documented as of this encounter Care Teams Space And Storage Clerk Relationship Specialty Start Date End Date Clarissa Gomez DO [address] [facility] [place] [address] PCP - General Family Practice 02/14/17 [place] [address] [place] [address] Assigned PCP 08/23/19 08/13/20 Faustino Cedeno MD [address] [place] [address] Radiation Oncology 02/19/19 Zaida Ayoub APRN TILE LAYER SUPERVISOR [address] [place] [address] Nurse Practitioner Nurse Practitioner 02/19/19 Arturo Smith MD [address] [place] [address] [address] [place] [address] Urology 02/19/19 Clarissa Gomez DO [address] [facility] [place] [address] Referring Physician Family Practice 04/06/19 Angela Reid, RN Registered Nurse Urology 04/06/19 09/11/22 [place] [address] [place] [address] Assigned PCP 07/01/16 08/22/19 Faustino Cedeno MD [address] [place] [address] Assigned Cancer Care Provider 12/18/19 09/06/20 Arturo Smith MD [address] [place] [address] [address] [place], [place] [address] Assigned Surgical Provider 12/18/19 10/08/20 Guerrero Aguilar DPM [address] [place] [address] Assigned Musculoskeletal Provider 01/31/20 08/25/21 [place] [address] [place] [address] Assigned PCP 08/14/20 Cheri Macario PA [facility] Urology [address] [place], [place] [address] Assigned Surgical Provider 10/09/20 08/25/21 documented as of this encounter
--- OUTSIDE RECORDS SUMMARY | 2023-03-28 13:25 | XMS_ITS | Encounter Summary ---
Author Name Unknown Organization [place] Address [facility] [place] [address] Care Team Providers Care Internal Medicine Specialist Name Role Phone Clarissa Gomez DO Primary Care Provider Faustino Cedeno MD Unavailable [phone] Zaida Ayoub APRN, CNP Unavailable [phone] Arturo Smith MD Unavailable Clarissa Gomez DO Unavailable Angela Reid RN Unavailable [phone] Clarissa Gomez DO Unavailable Reason for Visit * Reason Comments Medication Refill Encounter Details Date Type Department Care Team (Late st Contact Info) Description 08/05/2022 [facility] [address] [place] [phone] [place] [address] [facility] [place] [address] Medication Refill Social History Tobacco Use Types Packs/Day Years [...] encounter Miscellaneous Notes * Telephone Encounter - Ochoa Toro RN - 08/09/2022 3:27 PM CDT Refill requests refused - patient has new pcp See message below Ochoa Toro RN * Telephone Encounter - Kirsten Zimmer - 08/09/2022 11:54 AM CDTSummary: RX Spoke to patient to let him know that [facility] is requesting medication refills from us still. Pt states he has talked to [facility] already and they are resending it to his new provider. * Telephone Encounter - Kimberley Easton MD - 08/06/2022 12:27 PM CDT It appears that the patient has transferred clinics. Please confirm this with him - thanks EB * Telephone Encounter - Jahaira Live RN - 08/06/2022 12:20 PM CDT Routing refill request to provider for review/approval because: Patient is due for a annual exam and labs. See below. Requested Prescriptions Pending Prescriptions Disp Refills ??? allopurinol (ZYLOPRIM) 300 MG tablet [Pharmacy Med Name: ALLOPURINOL TABS 300MG] 90 tablet 3 Sig: TAKE 1 TABLET DAILY Gout Agents Protocol Failed - 08/05/2022 11:33 PM Failed - CBC on file in past 12 months Recent Labs Lab Test 07/13/21 1502 WBC 8.1 RBC 4.40 HGB 13.6 HCT 40.9 PLT 211 Failed - ALT on file in past 12 months Recent Labs Lab Test 07/13/21 1502 ALT 36 Failed - Has Uric Acid on file in past 12 months and value is less than 6 Recent Labs Lab Test 07/13/21 1502 URIC 3.8 If level is 6mg/dL or greater, ok to refill one time and refer to provider. Failed - Recent (12 mo) or future (30 days) visit within the authorizing provider's specialty Patient has had an office visit with the authorizing provider or a provider within the authorizing providers department within the previous 12 mos or has a future within next 30 days. See Patient Info tab in inbasket, or Choose Columns in Meds & Orders section of the refill encounter. Failed - Normal serum creatinine on file in the past 12 months Recent Labs Lab Test 05/31/21 0851 CR 0.96 Ok to refill medication if creatinine is low Passed - Medication is active on med list Passed - Patient is age 18 or older ??? esomeprazole (NEXIUM) [address] capsule [Pharmacy Med Name: ESOMEPRAZOLE MAGNESIUM DR CAPS 40MG]90 capsule 3 Sig: TAKE 1 CAPSULE DAILY 30 TO 60 MINUTES BEFORE EATING PPI Protocol Failed - 08/05/2022 11:33 PM Failed - Recent (12 mo) or future (30 days) visit within the authorizing provider's specialty Patient has had an office visit with the authorizing provider or a provider within the authorizing providers department within the previous 12 mos or has a future within next 30 days. See Patient Info tab in inbasket, or Choose Columns in Meds & Orders section of the refill encounter. Passed - Not on Clopidogrel (unless Pantoprazole ordered) Passed - No diagnosis of osteoporosis on record Passed - Medication is active on med list Passed - Patient is age 18 or older ??? hydrochlorothiazide (HYDRODIURIL) 25 MG tablet [Pharmacy Med Name: HYDROCHLOROTHIAZIDE TABS 25MG] 90 tablet 3 Sig: TAKE 1 TABLET DAILY Diuretics (Including Combos) Protocol Failed - 08/05/2022 11:33 PM Failed - Blood pressure under 140/90 in past 12 months BP Readings from Last 3 Encounters: 07/13/21 134/82 11/07/20 137/87 07/11/20 130/80 Failed - Recent (12 mo) or future (30 days) visit within the authorizing provider's specialty Patient has had an office visit with the authorizing provider or a provider within the authorizing providers department within the previous 12 mos or has a future within next 30 days. See Patient Info tab in inbasket, or Choose Columns in Meds & Orders section of the refill encounter. Failed - Normal serum creatinine on file in past 12 months Recent Labs Lab Test 05/31/21 0851 CR 0.96 Failed - Normal serum potassium on file in past 12 months Recent Labs Lab Test 05/31/21 0851 POTASSIUM 3.7 Failed - Normal serum sodium on file in past 12 months Recent Labs Lab Test 05/31/21 0851 NA 138 Passed - Medication is active on med list Passed - Patient is age 18 or older ??? irbesartan (AVAPRO) 150 MG tablet [Pharmacy Med Name: IRBESARTAN TABS 150MG] 90 tablet 3 Sig: TAKE 1 TABLET AT BEDTIME Angiotensin-II Receptors Failed - 08/05/2022 11:33 PM Failed - Last blood pressure under 140/90 in past 12 months BP Readings from Last 3 Encounters: 07/13/21 134/82 11/07/20 137/87 07/11/20 130/80 Failed - Recent (12 mo) or future (30 days) visit within the authorizing provider's specialty Patient has had an office visit with the authorizing provider or a provider within the authorizing providers department within the previous 12 mos or has a future within next 30 days. See Patient Info tab in [employer]sket, or Choose Columns in Meds & Orders section of the refill encounter. Failed - Normal serum creatinine on file in past 12 months Recent Labs Lab Test 05/31/21 0851 CR 0.96 Ok to refill medication if creatinine is low Failed - Normal serum potassium on file in past 12 months Recent Labs Lab Test 05/31/21 0851 POTASSIUM 3.7 Passed - Medication is active on med list Passed - Patient is age 18 or older ??? metoprolol succinate ER (TOPROL XL) 100 MG 24 hr tablet [Pharmacy Med Name: METOPROLOL SUCCINATE ER TABS 100MG] 135 tablet 3 Sig: TAKE ONE AND ONE-HALF TABLETS DAILY Beta-Blockers Protocol Failed - 08/05/2022 11:33 PM Failed - Blood pressure under 140/90 in past 12 months BP Readings from Last 3 Encounters: 07/13/21 134/82 11/07/20 137/87 07/11/20 130/80 Failed - Recent (12 mo) or future (30 days) visit within the authorizing provider's specialty Patient has had an office visit with the authorizing provider or a provider within the authorizing providers department within the previous 12 mos or has a future within next 30 days. See Patient Info tab in inbasket, or Choose Columns in Meds & Orders section of the refill encounter. Passed - Patient is age 6 or older Passed - Medication is active on med list Jahaira Live RN 08/06/22 12:22 PM documented in this encounter Plan of Treatment Not on file documented as of this encounter Visit Diagnoses Diagnosis Gout of multiple sites, unspecified cause, unspecified chronicity Gastroesophageal reflux disease without esophagitis Esophageal reflux Hypertension goal BP (blood pressure) < 140/80 Unspecified essential hypertension documented in this encounter Additional Health Concerns Assessment Noted Time PHQ-9 Depression Total Score: 1 09/19/19 17 7:21 AM CDT documented as of this encounter Care Teams Internal Medicine Specialist Relationship Specialty Start Date End Date Clarissa Gomez DO [address] [place] [address] PCP - General Family Practice 02/14/17 Faustino Cedeno MD [address] [place] [address] Radiation Oncology 02/19/19 Zaida Ayoub APRN FABRIC WORKER FOREMAN [address] [place] [address] Nurse Practitioner Nurse Practitioner 02/19/19 Arturo Smith MD [address] [place] [address] [address] [place] [address] Urology 02/19/19 Clarissa Gomez DO [address] [place] [address] Referring Physician Family Practice 04/06/19 Angela Reid RN Registered Nurse Urology 04/06/19 09/11/22 [place] [address] [address] [address] Assigned PCP 08/14/20 documented as of this encounter
--- OUTSIDE RECORDS SUMMARY | 2023-03-28 13:25 | XMS_ITS | Encounter Summary ---
Author Name Unknown Organization [place] Address [facility] [place] [address] Care Team Providers Care Remote Operations Producer Name Role Phone Clarissa Gomez DO Primary Care Provider [phone] Clarissa Gomez DO Unavailable Faustino Cedeno MD Unavailable Zaida Ayoub APRN FIREWORKS INSPECTOR Unavailable Arturo Smith MD Unavailable [phone] Clarissa Gomez DO Unavailable [phone] Angela Reid RN Unavailable [phone] Faustino Cedeno MD Unavailable Arturo Smith MD Unavailable [phone] Guerrero Aguilar DPM Unavailable Clarissa Gomez DO Unavailable [phone] Cheri Macario Unavailable Reason for Visit * Reason Onset Date Comments Appointment 11/12/2019 Encounter Details Date Type Department Care Team (Late st Contact Info) Description 11/12/2019 Telephone [facility] and [facility] for Prostate and Urologic Cancers [address] [place] [address] [address] [place] [address] Cheri Macario PA [facility] [address] [place] [address] Appointment Social History Tobacco Use Types Packs/Day Years [...] Exposure Response Date Recorded In the last 10 days, have yo u been in contact with someone who was confirmed or suspected to have Coronavirus/COVID-19? No / Unsure 07/13/2021 1:45 PM CDT documented as of this encounter Miscellaneous Notes * Telephone Encounter - Cheryle Benson - 11/17/2019 10:43 AM CDT Left second message for pt to call and schedule a virtual visit with Hui Macario in 3 months witha PSA done at least 3 days prior. * Telephone Encounter - Cheryle Benson - 11/12/2019 12:30 PM CDT Left message for pt to call and schedule a virtual visit with Hui Macario in 3 months with a PSA done at least 3 days prior. * Telephone Encounter - Cheryle Benson - 11/12/2019 12:30 PM CDT ----- Message from Angela Reid RN sent at 11/12/2019 10:19 AM CDT ----- Please call and schedule this patient with a PSA and visit with Hui in 3 months. Can be VV. Orders are placed. Thank you documented in this encounter Plan of Treatment Not on file documented as of this encounter Visit Diagnoses Not on filedocumented in this encounter Additional Health Concerns Assessment Noted Time PHQ-9 Depression Total Score: 1 09/19/19 17 7:21 AM CDT documented as of this encounter Care Teams Remote Operations Producer Relationship Specialty Start Date End Date Clarissa Gomez DO [address] [facility] [address] PCP - General Family Practice 02/14/17 [place] [address] [place] [address] Assigned PCP 08/23/19 08/13/20 Faustino Cedeno MD [address] [place] [address] Radiation Oncology 02/19/19 Zaida Ayoub APRN CNP [address] [place] [address] Nurse Practitioner Nurse Practitioner 02/19/19 Arturo Smith MD [address] [facility] [address] [place], [place] [address] Urology 02/19/19 Clarissa Gomez DO [address] [facility] [place] [address] Referring Physician Family Practice 04/06/19 Angela Reid, RN Registered Nurse Urology 04/06/19 09/11/22 Faustino Cedeno MD [address] [place] [address] Assigned Cancer Care Provider 12/18/19 09/06/20 Arturo Smith MD [address] [address] Assigned Surgical Provider 12/18/19 10/08/20 Guerrero Aguilar DPM [address] [place] [address] Assigned Musculoskeletal Provider 01/31/20 08/25/21 [place] [address] [place] [address] Assigned PCP 08/14/20 Cheri Macario PA [facility] [address] [place] [address] Assigned Surgical Provider 10/09/20 08/25/21 documented as of this encounter
--- OUTSIDE RECORDS SUMMARY | 2023-03-28 13:25 | XMS_ITS | Encounter Summary ---
Author Name Unknown Organization [place] Address [facility] [place] [address] Care Team Providers Care Increment Manager Name Role Phone Clarissa Gomez DO Primary Care Provider Clarissa Gomez DO Unavailable Faustino Cedeno MD Unavailable [phone] Zaida Ayoub APRN PATIENT SUPPORT ASSOCIATE Unavailable Arturo Smith MD Unavailable [phone] Clarissa Gomez DO Unavailable Angela Reid RN Unavailable [phone] Faustino Cedeno MD Unavailable Arturo Smith MD Unavailable [phone] Guerrero Aguilar DPM Unavailable Clarissa Gomez DO Unavailable Cheri Macario Unavailable Encounter Details Date Type Department Care Team (Late st Contact Info) Description 11/12/2019 MyC Medical Advice [facility] and Inst for Prostate and Urologic Cancers [address] [facility] [address] [place] [address] Angela Reid, RN Social History [...] have Coronavirus / COVID-19? No / Unsure 10/15/2019 1:06 PM CDT documented as of this encounter Plan of Treatment Not on file documented as of this encounter Visit Diagnoses Not on filedocumented in this encounter Additional Health Concerns Assessment Noted Time PHQ-9 Depression Total Score: 1 09/19/19 17 7:21 AM CDT documented as of this encounter Care Teams Increment Manager Relationship Specialty Start Date End Date Clarissa Gomez DO [address] [facility] [place] [address] PCP - General Family Practice 02/14/17 [place] [address] [place] [address] Assigned PCP 08/23/19 08/13/20 Faustino Cedeno MD [address] [place] [address] Radiation Oncology 02/19/19 Zaida Ayoub APRN PATIENT SUPPORT ASSOCIATE [address] [place] [address] Nurse Practitioner Nurse Practitioner 02/19/19 Arturo Smith MD [address] [place] [address] [address] [place] [address] Urology 02/19/19 Clarissa Gomez DO [address] [facility] [place] [address] Referring Physician Family Practice 04/06/19 Angela Reid, RN Registered Nurse Urology 04/06/19 09/11/22 Faustino Cedeno MD [address] [place] [address] Assigned Cancer Care Provider 12/18/19 09/06/20 Arturo Smith MD [address] [place] [id number] Assigned Surgical Provider 12/18/19 10/08/20 Guerrero Aguilar DPM [address] [place], [place] [address] Assigned Musculoskeletal Provider 01/31/20 08/25/21 [place] [address] [place] [address] Assigned PCP 08/14/20 Cheri Macario PA [facility] Urology [address] [place], [place] [address] Assigned Surgical Provider 10/09/20 08/25/21 documented as of this encounter
--- OUTSIDE RECORDS SUMMARY | 2023-03-28 13:25 | XMS_ITS | Encounter Summary ---
Author Name Unknown Organization [place] Address [facility] [place] [address] Care Team Providers Care Political Advisor Name Role Phone Clarissa Gomez DO Primary Care Provider Faustino Cedeno MD Unavailable [phone] Zaida Ayoub APRN, CNP Unavailable [phone] Arturo Smith MD Unavailable Clarissa Gomez DO Unavailable Angela Reid RN Unavailable [phone] Clarissa Gomez DO Unavailable [phone] Reason for Visit * Reason Comments Medication Refill Encounter Details Date Type Department Care Team (Late st Contact Info) Description 04/16/2022 [facility] [address] [place] [id number] [place] [address] [facility] [place] [address] Medication Refill Social History Tobacco Use Types [...] Telephone Encounter - Ochoa Toro RN - 04/18/2022 1:44 PM CST Call placed to patient Relayed Dr. Gomez's message Patient verbalized understanding Will reach out to pharmacy to update them with new provider No further questions/concerns Ochoa Toro RN NISTRATIVE PROCESSOR * Telephone Encounter - Clarissa Gomez DO - 04/18/2022 11:40 AM CST Pt has transferred care closer to home. Please let him know to transfer script to his new provider. Dr. Clarissa Gomez DO NISTRATIVE PROCESSOR * Telephone Encounter - Ochoa Toro RN - 04/18/2022 9:45 AM CST Routing refill request to provider for review/approval because: Patient needs to be seen because: Due for DM check Ochoa Toro RN NISTRATIVE PROCESSOR documented in this encounter Plan of Treatment Not on file documented as of this encounter Visit Diagnoses Diagnosis Controlled type 2 diabetes mellitus without complication, without long-term current use of insulin (H) documented in this encounter Additional Health Concerns Assessment Noted Time PHQ-9 Depression Total Score: 1 09/19/19 17 7:21 AM CDT documented as of this encounter Care Teams Political Advisor Relationship Specialty Start Date End Date Clarissa Gomez DO [address] [facility] [place] [address] PCP - General Family Practice 02/14/17 Faustino Cedeno MD [address] [place] [address] Radiation Oncology 02/19/19 Zaida Ayoub APRN OIL DISTRIBUTOR [address] [place] [address] Nurse Practitioner Nurse Practitioner 02/19/19 Arturo Smith MD [address] [facility] [address] [place] [address] MD Urology 02/19/19 Clarissa Gomez DO [address] [facility] [place] [address] Referring Physician Family Practice 04/06/19 Angela Reid, RN Registered Nurse Urology 04/06/19 09/11/22 [place] [address] [place] [address] Assigned PCP 08/14/20 documented as of this encounter
--- OUTSIDE RECORDS SUMMARY | 2023-03-28 13:25 | XMS_ITS | Encounter Summary ---
Author Name Unknown Organization [place] Address Count includes the [facility]0 [facility] [place] [address] Care Team Providers Care Vp Strategic Partnerships Name Role Phone Clarissa Gomez DO Primary Care Provider Clarissa Gomez DO Unavailable [phone] Faustino Cedeno MD Unavailable Zaida Ayoub APRN LOWERATOR OPERATOR Unavailable Arturo Smith MD Unavailable [phone] Clarissa Gomez DO Unavailable Angela Reid RN Unavailable [phone] Clarissa Gomez DO Unavailable Faustino Cedeno MD Unavailable [phone] Arturo Smith MD Unavailable Guerrero Aguilar DPM Unavailable Clarissa Gomez DO Unavailable Cheri Macario Unavailable Encounter Details Date Type Department Care Team (Late st Contact Info) Description 06/24/2018 MyC Medical Advice [address] [address] Slime Castellanos CMA Social History Tobacco Use [...] documented as of this encounter Care Teams Vp Strategic Partnerships Relationship Specialty Start Date End Date Clarissa Gomez DO [address] [facility] [place] [address] PCP - General Family Practice 02/14/17 [place] [address] [place] [address] Assigned PCP 08/23/19 08/13/20 Faustino Cedeno MD [address] [place] [address] Radiation Oncology 02/19/19 Zaida Ayoub APRN LOWERATOR OPERATOR [address] [place] [address] Nurse Practitioner Nurse Practitioner 02/19/19 Arturo Smith MD [address] [place] [address] [address] [place] [address] Urology 02/19/19 Clarissa Gomez DO [address] [facility] [place] [address] Referring Physician Family Practice 04/06/19 Angela Reid, RN Registered Nurse Urology 04/06/19 09/11/22 [place] [address] [place] [address] Assigned PCP 07/01/16 08/22/19 Faustino Cedeno MD [address] [place] [address] Assigned Cancer Care Provider 12/18/19 09/06/20 Arturo Smith MD [address] [place] [id number] Assigned Surgical Provider 12/18/19 10/08/20 Guerrero Aguilar DPM [address] [place] [address] Assigned Musculoskeletal Provider 01/31/20 08/25/21 [place] [address] [place] [address] Assigned PCP 08/14/20 Cheri Macario PA [facility] Urology [address] [place], [place] [address] Assigned Surgical Provider 10/09/20 08/25/21 documented as of this encounter
--- OUTSIDE RECORDS SUMMARY | 2023-03-28 13:25 | XMS_ITS | Encounter Summary ---
Author Name Unknown Organization [place] Address [facility] [place] [address] Care Team Providers Care Surveillance Director Name Role Phone Clarissa Gomez DO Primary Care Provider Clarissa Gomez DO Unavailable Faustino Cedeno MD Unavailable Zaida Ayoub APRN SILO WORKER Unavailable Arturo Smith MD Unavailable [phone] Clarissa Gomez DO Unavailable Angela Reid RN Unavailable [phone] Faustino Cedeno MD Unavailable Arturo Smith MD Unavailable [phone] Guerrero Aguilar DPM Unavailable Clarissa Gomez DO Unavailable Cheri Macario Unavailable Encounter Details Date Type Department Care Team (Late st Contact Info) Description 02/25/2020 [facility] Clinic [address] [place] [address] [facility] Social History Tobacco Use Types Packs/Day Years [...] have Coronavirus / COVID-19? No / Unsure 02/23/2020 1:00 PM WELDER HELPER documented as of this encounter Plan of Treatment Not on file documented as of this encounter Visit Diagnoses Not on filedocumented in this encounter Additional Health Concerns Assessment Noted Time PHQ-9 Depression Total Score: 1 09/19/19 17 7:21 AM CDT documented as of this encounter Care Teams Surveillance Director Relationship Specialty Start Date End Date Clarissa Gomez DO [address] [facility] [place] [address] PCP - General Family Practice 02/14/17 [place] [address] [place] [address] Assigned PCP 08/23/19 08/13/20 Faustino Cedeno MD [address] [place] [address] Radiation Oncology 02/19/19 Zaida Ayoub APRN SILO WORKER [address] [place] [address] Nurse Practitioner Nurse Practitioner 02/19/19 Arturo Smith MD [address] [place] [address] [address] [place] [address] Urology 02/19/19 Clarissa Gomez DO [address] [facility] [place] [address] Referring Physician Family Practice 04/06/19 Angela Reid, RN Registered Nurse Urology 04/06/19 09/11/22 Faustino Cedeno MD [address] [place] [address] Assigned Cancer Care Provider 12/18/19 09/06/20 Arturo Smith MD [address] [place] [address] Assigned Surgical Provider 12/18/19 10/08/20 Guerrero Aguilar DPM [address] [place] [address] Assigned Musculoskeletal Provider 01/31/20 08/25/21 [place] [address] [place] [address] Assigned PCP 08/14/20 Cheri Macario PA [facility] Urology [address] [place], [place] [address] Assigned Surgical Provider 10/09/20 08/25/21 documented as of this encounter
--- OUTSIDE RECORDS SUMMARY | 2023-03-28 13:25 | XMS_ITS | Encounter Summary ---
Author Name Unknown Organization [place] Address [facility] [address] Care Team Providers Care Manager Of Software Name Role Phone Clarissa Gomez DO Primary Care Provider Clarissa Gomez DO Unavailable Faustino Cedeno MD Unavailable [phone] Zaida Ayoub APRN, CNP Unavailable Arturo Smith MD Unavailable [phone] Clarissa Gomez DO Unavailable [phone] Angela Reid RN Unavailable Clarissa Gomez DO Unavailable [phone] Faustino Cedeno MD Unavailable Arturo Smith MD Unavailable [phone] Guerrero Aguilar DPM Unavailable [phone] Clarissa Gomez DO Unavailable [phone] Cheri Macario Unavailable [phone] Encounter Details Date Type Department Care Team (Late st Contact Info) Description 01/27/2019 MyC Medical Advice [facility] Urology and Inst for Prostate and Urologic Cancers [address] [facility] 4th [place] [address] Shun, Demetra, MOUNTING MACHINE OPERATOR Social History Tobacco Use Types Packs/Day Years [...] documented as of this encounter Care Teams Manager Of Software Relationship Specialty Start Date End Date Clarissa Gomez DO [address] [facility] [place] [address] PCP - General Family Practice 02/14/17 [place] [address] [place] [address] Assigned PCP 08/23/19 08/13/20 Faustino Cedeno MD [address] [place] [address] Radiation Oncology 02/19/19 Zaida Ayoub APRN BACK PANEL PADDER [address] [place] [address] Nurse Practitioner Nurse Practitioner 02/19/19 Arturo Smith MD [address] [facility] [address] [place] [address] Urology 02/19/19 Clarissa Gomez DO [address] [facility] [place] [address] Referring Physician Family Practice 04/06/19 Angela Reid, RN Registered Nurse Urology 04/06/19 09/11/22 [place] [address] [place] [address] Assigned PCP 07/01/16 08/22/19 Faustino Cedeno MD [address] [place] [address] Assigned Cancer Care Provider 12/18/19 09/06/20 Arturo Smith MD [address] [place] [address] 394 [place], [place] [address] Assigned Surgical Provider 12/18/19 10/08/20 Guerrero Aguilar DPM 6[address] [place] [address] Assigned Musculoskeletal Provider 01/31/20 08/25/21 [place] [address] [place] [address] Assigned PCP 08/14/20 Cheri Macario PA [facility] Urology [address] [place], [place] [address] Assigned Surgical Provider 10/09/20 08/25/21 documented as of this encounter
--- OUTSIDE RECORDS SUMMARY | 2023-03-28 13:25 | XMS_ITS | Encounter Summary ---
Author Name Unknown Organization [place] Address [address] [place] [address]. [place] [address] Care Team Providers Care Anode Machine Operator Name Role Phone Britney Phillips MD Primary Care Provider [phone] Clarissa Gomez DO Primary Care Provider [phone] Clarissa Gomez DO Unavailable Clarissa Gomez DO Unavailable Faustino Cedeno MD Unavailable Zaida Ayoub APRN TOWEL DISTRIBUTOR Unavailable Arturo Smith MD Unavailable [phone] Clarissa Goemz DO Unavailable Angela Reid RN Unavailable [phone] Clarissa Gomez DO Unavailable Faustino Cedeno MD Unavailable Arturo Smith MD Unavailable Guerrero Aguilar DPM Unavailable [phone] Clarissa Gomez DO Unavailable Cheri Macario Unavailable [phone] Reason for Visit * Reason Onset Date Comments Medication Question 08/14/2013 Encounter Details Date Type Department Care Team (Late st Contact Info) Description 08/14/2013 MyC Medical Advice [facility] [place] [address] [facility] [place] [address] [place] [address] [facility] [place] [address] Medication Question Social History Tobacco Use Types Packs/Day Years [...] encounter Miscellaneous Notes * Telephone Encounter - Richa Matias RN - 08/14/2013 11:17 AM CDT Please review [facility] Msg. KPavelRN documented in this encounter Plan of Treatment Not on file documented as of this encounter Visit Diagnoses Diagnosis Gout, unspecified documented in this encounter Additional Health Concerns Infection Onset Date Last Indicated Resolved Time Rule Out COVID-19 07/10/2019 07/10/2019 07/12/2019 7:17 AM CDT documented as of this encounter Care Teams Anode Machine Operator Relationship Specialty Start Date End Date Britney Phillips MD PCP - General Family Practice 08/08/12 02/13/17 Clarissa Gomez DO [address] [facility] [place] [address] PCP - General Family Practice 02/14/17 [place] [address] [place] [address] PCP - Assigned PCP 07/01/16 04/29/18 [place] [address] [place] [address] Assigned PCP 08/23/19 08/13/20 Faustino Cedeno MD 5160 [place] [address] Radiation Oncology 02/19/19 Zaida Ayoub APRN TOWEL DISTRIBUTOR 5160 [place] [address] Nurse Practitioner Nurse Practitioner 02/19/19 Arturo Smith MD [address] [place] [address] Urology 02/19/19 Clarissa Gomez DO [address] [facility] [place] [address] Referring Physician Family Practice 04/06/19 Angela Reid, RN Registered Nurse Urology 04/06/19 09/11/22 [place] [address] [place] [address] Assigned PCP 07/01/16 08/22/19 Faustino Cedeno MD [address] [place] [address] Assigned Cancer Care Provider 12/18/19 09/06/20 Arturo Smith MD [address] [place] [address] Assigned Surgical Provider 12/18/19 10/08/20 Guerrero Aguilar DPM [address] [facility] [place] [address] Assigned Musculoskeletal Provider 01/31/20 08/25/21 [place] [address] [place] [address] Assigned PCP 08/14/20 Cheri Macario PA [facility] Urology [address] [place] [address]435 Assigned Surgical Provider 10/09/20 08/25/21 documented as of this encounter
--- OUTSIDE RECORDS SUMMARY | 2023-03-28 13:25 | XMS_ITS | Encounter Summary ---
Author Name Unknown Organization [place] Address [facility] [place] [address] Care Team Providers Care Helper Driver Name Role Phone Clarissa Gomez DO Primary Care Provider Faustino Cedeno MD Unavailable Zaida Ayoub APRN, CNP Unavailable [phone] Arturo Smith MD Unavailable [phone] Clarissa Gomez DO Unavailable [phone] Angela Reid RN Unavailable [phone] Clarissa Gomez DO Unavailable Reason for Visit * Reason Comments Medication Refill Encounter Details Date Type Department Care Team (Late st Contact Info) Description [facility] [address] [place] [phone] [place] [address] [place] [address] Medication Refill Social History Tobacco Use Types [...] encounter Miscellaneous Notes * Telephone Encounter - Clarissa Gomez DO - 04/25/2022 4:17 PM CST Pt has transferred care. Please let him know to contact his pharmacy so the refill is directed to his new provider Clarissa Gomez DO RACTING MANAGER * Telephone Encounter - Ochoa Toro RN - 04/25/2022 1:45 PM CST Routing refill request to provider for review/approval because: Patient needs to be seen because: Due for DM check Ochoa Toro RN RACTING MANAGER documented in this encounter Plan of Treatment Not on file documented as of this encounter Visit Diagnoses Diagnosis Controlled type 2 diabetes mellitus without complication, without long-term current use of insulin (H) documented in this encounter Additional Health Concerns Assessment Noted Time PHQ-9 Depression Total Score: 1 09/19/19 17 7:21 AM CDT documented as of this encounter Care Teams Helper Driver Relationship Specialty Start Date End Date Clarissa Gomez DO [address] [facility] [place] [address] PCP - General Family Practice 02/14/17 Faustino Cedeno MD 5160 [place] [address] Radiation Oncology 02/19/19 Zaida Ayoub APRN GLASS BREAKER 5160 [place] [address] Nurse Practitioner Nurse Practitioner 02/19/19 Arturo Smith MD [address] [place] [address] 394 [place] [address] Urology 02/19/19 Clarissa Gomez DO [address] [facility] [place] [address] Referring Physician Family Practice 04/06/19 Angela Reid, RN Registered Nurse Urology 04/06/19 09/11/22 [place] [address] [place] [address] Assigned PCP 08/14/20 documented as of this encounter
--- OUTSIDE RECORDS SUMMARY | 2023-03-28 13:26 | XMS_ITS | Encounter Summary ---
Author Name Unknown Organization [place] Address [address] [place] [address]. [place] [address] Care Team Providers Care Manager Subway Name Role Phone Alexandro Rader MD Primary Care Provider [phone] Britney Phillips MD Primary Care Provider + [phone] Clarissa Gomez DO Primary Care Provider [phone] Clarissa Gomez DO Unavailable Clarissa Gomez DO Unavailable Faustino Cedeno MD Unavailable Zaida Ayoub APRN PUBLIC DEFENDER Unavailable [phone] Arturo Smith MD Unavailable [phone] Clarissa Gomez DO Unavailable Angela Reid RN Unavailable [phone] Clarissa Gomez DO Unavailable Faustino Cedeno MD Unavailable [phone] Arturo Smith MD Unavailable [phone] Guerrero Aguilar DPM Unavailable [phone] Clarissa Gomez DO Unavailable [phone] Cheri Macario Unavailable [phone] Encounter Details Date Type Department Care Team (Late st Contact Info) Description 04/29/2007 MyC Medical Advice [facility] Alexandro Rader MD [address] [facility] [place] [address] Social History Tobacco Use Types Packs/Day Years Used Date Smoking Tobacco: Never Alcohol Use Standard Drinks/Week Comments [...] as of this encounter Care Teams Manager Subway Relationship Specialty Start Date End Date Alexandro Rader MD PCP - General 06/26/06 08/07/12 Britney Phillips MD PCP - General Family Practice 08/08/12 02/13/17 Clarissa Gomez DO [address] [facility] [place] [address] PCP - General Family Practice 02/14/17 [place] [address] [place] [address] PCP - Assigned PCP 07/01/16 04/29/18 [place] [address] [place] [address] Assigned PCP 08/23/19 08/13/20 Faustino Cedeno MD 5160 [place] [address] Radiation Oncology 02/19/19 Zaida Ayoub APRN PUBLIC DEFENDER 5[address] [place] [address] Nurse Practitioner Nurse Practitioner 02/19/19 Arturo Smith MD [address] [place] [address] 394 [place] [address] Urology 02/19/19 Clarissa Gomez DO [address] [facility] [place] [address] Referring Physician Family Practice 04/06/19 Angela Reid, RN Registered Nurse Urology 04/06/19 09/11/22 [place] [address] [place] [address] Assigned PCP 07/01/16 08/22/19 Faustino Cedeno MD 5[address] [place] [address] Assigned Cancer Care Provider 12/18/19 09/06/20 Arturo Smith MD [address] [place] [address] 394 [place] [address] Assigned Surgical Provider 12/18/19 10/08/20 Guerrero Aguilar, DPM [address] [place] [address] Assigned Musculoskeletal Provider 01/31/20 08/25/21 [place] [address] [address] [place] [address] Assigned PCP 08/14/20 Cheri Macario PA [facility] Urology [address] [place] [address] Assigned Surgical Provider 10/09/20 08/25/21 documented as of this encounter
--- OUTSIDE RECORDS SUMMARY | 2023-03-28 13:26 | XMS_ITS | Encounter Summary ---
Author Name Unknown Organization [place] Address [address] [place] [address]. [place] [address] Care Team Providers Care Prison Teacher Name Role Phone Alexandro Rader MD Primary Care Provider [phone] Britney Phillips MD Primary Care Provider + [phone] Clarissa Gomez DO Primary Care Provider [phone] Clarissa Gomez DO Unavailable Clarissa Gomez DO Unavailable Faustino Cedeno MD Unavailable [phone] Zaida Ayoub APRN INSTRUMENT FITTER Unavailable [phone] Arturo Smith MD Unavailable [phone] Clarissa Gomez DO Unavailable Angela Reid RN Unavailable [phone] Clarissa Gomez DO Unavailable Faustino Cedeno MD Unavailable [phone] Arturo Smith MD Unavailable [phone] Guerrero Aguilar DPM Unavailable +[phone] Clarissa Gomez DO Unavailable Cheri Macario Unavailable +[phone] Encounter Details Date Type Department Care Team (Late st Contact Info) Description 01/23/2012 [facility] [place] [address] [facility] [place] [phone] Kimmy Barry Social History Tobacco Use Types [...] documented as of this encounter Care Teams Prison Teacher Relationship Specialty Start Date End Date Alexandro Rader MD PCP - General 06/26/06 08/07/12 Britney Phillips MD PCP - General Family Practice 08/08/12 02/13/17 Clarissa Gomez DO [address] [facility] [place] [address] PCP - General Family Practice 02/14/17 [place] [address] [place] [address] PCP - Assigned PCP 07/01/16 04/29/18 [place] [address] [place] [address] Assigned PCP 08/23/19 08/13/20 Faustino Cedeno MD [address] [place] [address] Radiation Oncology 02/19/19 Zaida Ayoub APRN INSTRUMENT FITTER 5160 [place] [address] Nurse Practitioner Nurse Practitioner 02/19/19 Arturo Smith MD [address] [place] [address] 394 [place] [address] Urology 02/19/19 Clarissa Gomez DO [address] [facility] [place] [address] Referring Physician Family Practice 04/06/19 Angela Reid, FREDIS Registered Nurse Urology 04/06/19 09/11/22 [place] [address] [place] [address] Assigned PCP 07/01/16 08/22/19 Faustino Cedeno MD 5[address] [place] [address] Assigned Cancer Care Provider 12/18/19 09/06/20 Arturo Smith MD [address] [place] [address] Assigned Surgical Provider 12/18/19 10/08/20 Guerrero Aguilar, DPM 6341 [place] [address] Assigned Musculoskeletal Provider 01/31/20 08/25/21 [place] [address] [address] [facility] [place] [address] Assigned PCP 08/14/20 Cheri Macario PA [facility] [address] [place] [address] Assigned Surgical Provider 10/09/20 08/25/21 documented as of this encounter
--- OUTSIDE RECORDS SUMMARY | 2023-03-28 13:26 | XMS_ITS | Encounter Summary ---
Author Name Unknown Organization [place] Address [address] [place] [address]. [place] [address] Care Team Providers Care Tobacco Wrapping Machine Tender Name Role Phone Alexandro Rader MD Primary Care Provider [phone] Britney Phillips MD Primary Care Provider + [phone] Clarissa Gomez DO Primary Care Provider [phone] Clarissa Gomez DO Unavailable Clarissa Gomez DO Unavailable Faustino Cedeno MD Unavailable Zaida Ayoub APRN DOUBLE END PRODUCTION GRINDER Unavailable Arturo Smith MD Unavailable [phone] Clarissa Gomez DO Unavailable Angela Reid RN Unavailable Clarissa Gomez DO Unavailable Faustino Cedeno MD Unavailable [phone] Arturo Smith MD Unavailable [phone] Guerrero Aguilar DPM Unavailable +[phone] Clarissa Gomez DO Unavailable Cheri Macario Unavailable [phone] Encounter Details Date Type Department Care Team (Late st Contact Info) Description 10/12/2010 MyC Medical Advice [facility] Emergency Dept [address] [facility] [address] Alexandro Rader MD [address] [facility] [place] [address] Social History Tobacco Use Types Packs/Day Years Used Date Smoking Tobacco: Never Alcohol Use Standard Drinks/Week Comments Yes 0 (1 standard drink = 0.6 oz pur e alcohol) Sex and Gender Information Value Date Recorded Sex Assigned at Not on file Gender Identity Not on file Sexual Orientation Not on file documented as of this encounter Miscellaneous Notes * Telephone Encounter - Kenyatta Grewal - 10/16/2010 6:22 PM CDT Alexandro. He is your pt. Just an FYI from your pt. documented in this encounter Plan of Treatment Not on file documented as of this encounter Visit Diagnoses Not on filedocumented in this encounter Additional Health Concerns Infection Onset Date Last Indicated Resolved Time Rule Out COVID-19 07/10/2019 07/10/2019 07/12/2019 7:17 AM CDT documented as of this encounter Care Teams Tobacco Wrapping Machine Tender Relationship Specialty Start Date End Date Alexandro Rader MD PCP - General 06/26/06 08/07/12 Britney Phillips MD PCP - General Family Practice 08/08/12 02/13/17 Clarissa Gomez DO [address] [facility] [place] [address] PCP - General Family Practice 02/14/17 [place] [address] [place] [address] PCP - Assigned PCP 07/01/16 04/29/18 [place] [address] [place] [address] Assigned PCP 08/23/19 08/13/20 Faustino Cedeno MD 5[address] [place] [address] Radiation Oncology 02/19/19 Zaida Ayoub APRN CNP 5[address] [place] [address] Nurse Practitioner Nurse Practitioner 02/19/19 Arturo Smith MD [address] [facility] 394 [place], [place] [address] MD Urology 02/19/19 Clarissa Gomez DO [address] [facility] [place] [address] Referring Physician Family Practice 04/06/19 Angela Reid, RN Registered Nurse Urology 04/06/19 09/11/22 [place] [address] [place] [address] Assigned PCP 07/01/16 08/22/19 Faustino Cedeno MD [address] [place] [address] Assigned Cancer Care Provider 12/18/19 09/06/20 Arturo Smith MD [address] [facility] 394 [place] [address] Assigned Surgical Provider 12/18/19 10/08/20 Guerrero Aguilar DPM 6341 [place] [address] Assigned Musculoskeletal Provider 01/31/20 08/25/21 [place] [address] [place] [address] Assigned PCP 08/14/20 Cheri Macario PA [facility] [address] [place] [address] Assigned Surgical Provider 10/09/20 08/25/21 documented as of this encounter
--- OUTSIDE RECORDS SUMMARY | 2023-03-28 13:26 | XMS_ITS | Encounter Summary ---
Author Name Unknown Organization [place] Address [address] [place] [address]. [place] [address] Care Team Providers Care Oxyacetylene Welder Name Role Phone Alexandro Rader MD Primary Care Provider [phone] Britney Phillips MD Primary Care Provider + [phone] Clarissa Gomez DO Primary Care Provider [phone] Clarissa Gomez DO Unavailable [phone] Clarissa Gomez DO Unavailable Faustino Cedeno MD Unavailable [phone] Zaida Ayoub APRN SALVAGE DETERMINER Unavailable [phone] Arturo Smith MD Unavailable [phone] Clarissa Gomez DO Unavailable Angela Reid RN Unavailable [phone] Clarissa Gomez DO Unavailable Faustino Cedeno MD Unavailable Arturo Smith MD Unavailable [phone] Guerrero Aguilar DPM Unavailable [phone] Clarissa Gomez DO Unavailable Cheri Macario Unavailable Reason for Visit * Reason Onset Date Comments Refill Request 12/28/2008 prevacid Encounter Details Date Type Department Care Team (Late st Contact Info) Description 12/28/2008 Refill [facility] Alexandro Rader MD [address] [facility] [place] [address] Refill Request (prevacid) Social History Tobacco Use Types Packs/Day Years Used Date Smoking Tobacco: Never Alcohol Use Standard Drinks/Week Comments Yes 0 (1 standard drink = 0.6 oz pur e alcohol) Sex and Gender Information Value Date Recorded Sex Assigned at Not on file Gender Identity Not on file Sexual Orientation Not on file documented as of this encounter Miscellaneous Notes * Telephone Encounter - Shawn Vasquez - 12/28/2008 11:18 AM CST Please sign this original rx-- given back to station special education secretary CONSTRUCTION documented in this encounter Plan of Treatment Not on file documented as of this encounter Visit Diagnoses Diagnosis GERD Esophageal reflux documented in this encounter Additional Health Concerns Infection Onset Date Last Indicated Resolved Time Rule Out COVID-19 07/10/2019 07/10/2019 07/12/2019 7:17 AM CDT documented as of this encounter Care Teams Oxyacetylene Welder Relationship Specialty Start Date End Date Alexandro Rader MD PCP - General 06/26/06 08/07/12 Britney Phillips MD PCP - General Family Practice 08/08/12 02/13/17 Clarissa Gomez DO [address] [facility] [place] [address] PCP - General Family Practice 02/14/17 [place] [address] [place] [address] PCP - Assigned PCP 07/01/16 04/29/18 [place] [address] [place] [address] Assigned PCP 08/23/19 08/13/20 Faustino Cedeno MD 5[address] [place] [address] Radiation Oncology 02/19/19 Zaida Ayoub APRN CNP [address] [place] [address] Nurse Practitioner Nurse Practitioner 02/19/19 Arturo Smith MD 420 [facility] 394 [place], [place] [address] MD Urology 02/19/19 Clarissa Gomez DO [address] [facility] [place] [address] Referring Physician Family Practice 04/06/19 Angela Reid, RN Registered Nurse Urology 04/06/19 09/11/22 [place] [address] [place] [address] Assigned PCP 07/01/16 08/22/19 Faustino Cedeno MD [address] [place] [address] Assigned Cancer Care Provider 12/18/19 09/06/20 Arturo Smith MD 420 [facility] 394 [place] [address] Assigned Surgical Provider 12/18/19 10/08/20 Guerrero Aguilar DPM 6[address] [place] [address] Assigned Musculoskeletal Provider 01/31/20 08/25/21 [place] [address] [address] [place] [address] Assigned PCP 08/14/20 Cheri Macario PA [facility] Urology [address] [place] [address] Assigned Surgical Provider 10/09/20 08/25/21 documented as of this encounter
--- OUTSIDE RECORDS SUMMARY | 2023-03-28 13:26 | XMS_ITS | Encounter Summary ---
Author Name Unknown Organization [place] Address [address] [place] [address]. [place] [address] Care Team Providers Care Manager Critical Care Name Role Phone Alexandro Rader MD Primary Care Provider [phone] Britney Phillips MD Primary Care Provider + [phone] Clarissa Gomez DO Primary Care Provider +[phone] Clarissa Gomez DO Unavailable Clarissa Gomez DO Unavailable Faustino Cedeno MD Unavailable Zaida Ayoub APRN ANALOG CIRCUIT DESIGNER Unavailable Arturo Smith MD Unavailable +[phone] Clarissa Gomez DO Unavailable +[phone] Angela Reid RN Unavailable [phone] Clarissa Gomez DO Unavailable Faustino Cedeno MD Unavailable [phone] Arturo Smith MD Unavailable +[phone] Guerrero Aguilar DPM Unavailable +[phone] Clarissa Gomez DO Unavailable Cheri Macario Unavailable +[phone] Encounter Details Date Type Department Care Team (Late st Contact Info) Description 11/07/2010 MyC Medical Advice [facility] Armand Carter [address] [facility] [place]her [place] [phone] Alexandro Rader MD [address] [facility] [place] [address] Social History Tobacco Use Types Packs/Day Years [...] as of this encounter Care Teams Manager Critical Care Relationship Specialty Start Date End Date Alexandro Rader MD PCP - General 06/26/06 08/07/12 Britney Phillips MD PCP - General Family Practice 08/08/12 02/13/17 Clarissa Gomez DO [address] [facility] [place] [address] PCP - General Family Practice 02/14/17 [place] [address] [place] [address] PCP - Assigned PCP 07/01/16 04/29/18 [place] [address] [place] [address] Assigned PCP 08/23/19 08/13/20 Faustino Cedeno MD 5160 [place] [address] Radiation Oncology 02/19/19 Zaida Ayoub APRN CNP 5160 [place] [address] Nurse Practitioner Nurse Practitioner 02/19/19 Arturo Smith MD [address] [facility] 394 [place] [address] Urology 02/19/19 Clarissa Gomez DO [address] [facility] [place] [address] Referring Physician Family Practice 04/06/19 Angela Reid, RN Registered Nurse Urology 04/06/19 09/11/22 [place] [address] [place] [address] Assigned PCP 07/01/16 08/22/19 Faustino Cedeno MD 5160 [place] [address] Assigned Cancer Care Provider 12/18/19 09/06/20 Arturo Smith MD [address] [place] [address] 394 [place], [place] [address] Assigned Surgical Provider 12/18/19 10/08/20 Guerrero Aguilar DPM [address] [facility] [place] [address] Assigned Musculoskeletal Provider 01/31/20 08/25/21 [place] [address] [address] [address] Assigned PCP 08/14/20 Cheri Macario PA [facility] Urology [address] [place] [address] [id number] Assigned Surgical Provider 10/09/20 08/25/21 documented as of this encounter
--- OUTSIDE RECORDS SUMMARY | 2023-03-28 13:26 | XMS_ITS | Encounter Summary ---
Author Name Unknown Organization [place] Address [address] [place] [address]. [place] [address] Care Team Providers Care Cad Developer Name Role Phone Alexandro Rader MD Primary Care Provider [phone] Britney Phillips MD Primary Care Provider + [phone] Clarissa Gomez DO Primary Care Provider +[phone] Clarissa Gomez DO Unavailable Clarissa Gomez DO Unavailable Faustino Cedeno MD Unavailable Zaida Ayoub APRN SHADE CUTTER Unavailable +[phone] Arturo Smith MD Unavailable +[phone] Clarissa Gomez DO Unavailable +[phone] Angela Reid RN Unavailable [phone] Clarissa Gomez DO Unavailable Faustino Cedeno MD Unavailable +[phone] Arturo Smith MD Unavailable +[phone] Guerrero Aguilar DPM Unavailable +[phone] Clarissa Gomez DO Unavailable Cheri Macario Unavailable [phone] Encounter Details Date Type Department Care Team (Late st Contact Info) Description 04/22/2007 MyC Medical Advice [facility] Alexandro Rader MD [address] [facility] [place] [address] Social History Tobacco Use Types Packs/Day Years [...] documented as of this encounter Care Teams Cad Developer Relationship Specialty Start Date End Date Alexandro Rader MD PCP - General 06/26/06 08/07/12 Britney Phillips MD PCP - General Family Practice 08/08/12 02/13/17 Clarissa Gomez DO [address] [facility] [place] [address] PCP - General Family Practice 02/14/17 [place] [address] [place] [address] PCP - Assigned PCP 07/01/16 04/29/18 [place] [address] [place] [address] Assigned PCP 08/23/19 08/13/20 Faustino Cedeno MD 5160 [place] [address] Radiation Oncology 02/19/19 Zaida Ayoub APRN SHADE CUTTER 5160 [place] [address] Nurse Practitioner Nurse Practitioner 02/19/19 Arturo Smith MD [address] [place] [address] [address] [place] [address] Urology 02/19/19 Clarissa Gomez DO [address] [facility] [place] [address] Referring Physician Family Practice 04/06/19 Angela Reid, RN Registered Nurse Urology 04/06/19 09/11/22 [place] [address] [place] [address] Assigned PCP 07/01/16 08/22/19 Faustino Cedeno MD 5[address] [place] [address] Assigned Cancer Care Provider 12/18/19 09/06/20 Arturo Smith MD [address] [place] [address] [address] [place] [address] Assigned Surgical Provider 12/18/19 10/08/20 Guerrero Aguilar, DPM 6341 [place] [address] Assigned Musculoskeletal Provider 01/31/20 08/25/21 [place] [address] [place] [address] Assigned PCP 08/14/20 Cheri Macario PA [facility] Urology [address] [place] [address] Assigned Surgical Provider 10/09/20 08/25/21 documented as of this encounter
--- OUTSIDE RECORDS SUMMARY | 2023-03-28 13:26 | XMS_ITS | Encounter Summary ---
Author Name Unknown Organization [place] Address [address] [place] [address]. [place] [address] Care Team Providers Care Fit Model Name Role Phone Alexandro Rader MD Primary Care Provider [phone] Britney Phillips MD Primary Care Provider + [phone] Clarissa Gomez DO Primary Care Provider [phone] Clarissa Gomez DO Unavailable Clarissa Gomez DO Unavailable Faustino Cedeno MD Unavailable Zaida Ayoub APRN ANGULAR DEVELOPER Unavailable +[phone] Arturo Smith MD Unavailable +[phone] Clarissa Gomez DO Unavailable +[phone] Angela Reid RN Unavailable [phone] Clarissa Gomez DO Unavailable Faustino Cedeno MD Unavailable +[phone] Arturo Smith MD Unavailable +[phone] Guerrero Aguilar DPM Unavailable +[phone] Clarissa Gomez DO Unavailable Cheri Macario Unavailable +[phone] Encounter Details Date Type Department Care Team (Late st Contact Info) Description 10/09/2010 Abstract [facility] Armand Carter 7[address] [facility] [place] [phone] Abstract, Provider Social History Tobacco Use Types Packs/Day Years [...] documented as of this encounter Care Teams Fit Model Relationship Specialty Start Date End Date Alexandro Rader MD PCP - General 06/26/06 08/07/12 Britney Phillips MD PCP - General Family Practice 08/08/12 02/13/17 Clarissa Gomez DO 7[address] [facility] [place] [address] PCP - General Family Practice 02/14/17 [place] [address] [place] [address] PCP - Assigned PCP 07/01/16 04/29/18 [place] [address] [place] [address] Assigned PCP 08/23/19 08/13/20 Faustino Cedeno MD 5[address] [facility] [place] [address] Radiation Oncology 02/19/19 Zaida Ayoub APRN ANGULAR DEVELOPER 5160 [place] [address] Nurse Practitioner Nurse Practitioner 02/19/19 Arturo Smith MD [address] [place] [address] 394 [place] [address] Urology 02/19/19 Clarissa Gomez DO [address] [facility] [place] [place] [address] Referring Physician Family Practice 04/06/19 Angela Reid, RN Registered Nurse Urology 04/06/19 09/11/22 [place] [address] [place] [address] Assigned PCP 07/01/16 08/22/19 Faustino Cedeno MD 5160 [place] [address] Assigned Cancer Care Provider 12/18/19 09/06/20 Arturo Smith MD [address] [place] [address] Assigned Surgical Provider 12/18/19 10/08/20 Guerrero Aguilar DPM 6341 [place] [address] Assigned Musculoskeletal Provider 01/31/20 08/25/21 [place] [address] [place] [address] Assigned PCP 08/14/[address] [facility] Urology [address] [place] [address] Assigned Surgical Provider 10/09/20 08/25/21 documented as of this encounter
--- OUTSIDE RECORDS SUMMARY | 2023-03-28 13:26 | XMS_ITS | Encounter Summary ---
Author Name Unknown Organization [place] Address [address] [place] [address]. [place] [address] Care Team Providers Care Emergency Department Director Name Role Phone Alexandro Rader MD Primary Care Provider [phone] Britney Phillips MD Primary Care Provider + [phone] Clarissa Gomez DO Primary Care Provider [phone] Clarissa Gomez DO Unavailable Clarissa Gomez DO Unavailable Faustino Cedeno MD Unavailable Zaida Ayoub APRN WIREWORKER SUPERVISOR Unavailable Arturo Smith MD Unavailable +[phone] Clarissa Gomez DO Unavailable +[phone] Angela Reid RN Unavailable [phone] Clarissa Gomez DO Unavailable Faustino Cedeno MD Unavailable +[phone] Arturo Smith MD Unavailable +[phone] Guerrero Aguilar DPM Unavailable +[phone] Clarissa Gomez DO Unavailable Cheri Macario Unavailable [phone] Encounter Details Date Type Department Care Team (Late st Contact Info) Description 10/31/2010 MyC Medical Advice [facility] Armand Carter 7[address] [facility] [place] [phone] Alexandro Rader MD [address] [facility] [place] [address] Social History Tobacco Use Types Packs/Day Years Used Date Smoking Tobacco: Never Alcohol Use Standard Drinks/Week Comments Yes 0 (1 standard drink = 0.6 oz pur e alcohol) Sex and Gender Information Value Date Recorded Sex Assigned at Not on file Gender Identity Not on file Sexual Orientation Not on file documented as of this encounter Miscellaneous Notes * Telephone Encounter - Heena Devi - 10/31/2010 1:58 PM CDT Please review and respond to the My Chart message below. Thanks, Heena Devi RN documented in this encounter Plan of Treatment Not on file documented as of this encounter Visit Diagnoses Not on filedocumented in this encounter Additional Health Concerns Infection Onset Date Last Indicated Resolved Time Rule Out COVID-19 07/10/2019 07/10/2019 07/12/2019 7:17 AM CDT documented as of this encounter Care Teams Emergency Department Director Relationship Specialty Start Date End Date Alexandro Rader MD PCP - General 06/26/06 08/07/12 Britney Phillips MD PCP - General Family Practice 08/08/12 02/13/17 Clarissa Gomez DO [address] [facility] [place] [address] PCP - General Family Practice 02/14/17 [place] [address] [place] [address] PCP - Assigned PCP 07/01/16 04/29/18 [place] [address] [place] [address] Assigned PCP 08/23/19 08/13/20 Faustino Cedeno MD 5160 [place] [address] Radiation Oncology 02/19/19 Zaida Ayoub APRN WIREWORKER SUPERVISOR 5160 [place] [address] Nurse Practitioner Nurse Practitioner 02/19/19 Arturo Smith MD 420 [facility] 394 [place], [place] [address] MD Urology 02/19/19 Clarissa Gomez DO [address] [place] [address] Referring Physician Family Practice 04/06/19 Angela Reid, RN Registered Nurse Urology 04/06/19 09/11/22 [place] [address] [place] [address] Assigned PCP 07/01/16 08/22/19 Faustino Cedeno MD 5[address] [place] [address] Assigned Cancer Care Provider 12/18/19 09/06/20 Arturo Smith MD [address] [address] Assigned Surgical Provider 12/18/19 10/08/20 Guerrero Aguilar DPM 6341 [place] [address] Assigned Musculoskeletal Provider 01/31/20 08/25/21 [place] [address] [place] [address] Assigned PCP 08/14/20 Cheri Macario PA [facility] Urology [address] [place] [address] Assigned Surgical Provider 10/09/20 08/25/21 documented as of this encounter
--- OUTSIDE RECORDS SUMMARY | 2023-03-28 13:26 | XMS_ITS | Encounter Summary ---
Author Name Unknown Organization [place] Address [address] [place] [address]. [place] [address] Care Team Providers Care Manager Strategic Sourcing Name Role Phone Alexandro Rader MD Primary Care Provider [phone] Britney Phillips MD Primary Care Provider + [phone] Clarissa Gomez DO Primary Care Provider [phone] Clarissa Gomez DO Unavailable Clarissa Gomez DO Unavailable PaoFaustino sierra MD Unavailable [phone] Zaida Ayoub APRN, CNP Unavailable Arturo Smith MD Unavailable Clarissa Gomez DO Unavailable +[phone] Angela Reid RN Unavailable [phone] Clarissa Gomez DO Unavailable Faustino Cedeno MD Unavailable [phone] Arturo Smith MD Unavailable Guerrero Aguilar DPM Unavailable +[phone] Clarissa Gomez DO Unavailable Cheri Macario Unavailable Reason for Referral * Office Workup No CT/MRI - Closed Specialty Diagnoses / Procedures Referred By Tremaine t Referred To Contact Dermatology Diagnoses AK (actinic keratosis) Alexandro Rader MD [address] [facility] [place] [address] [address] Referral ID Status Reason Start Date Expiration Date Visits Re quested Visits Authorized [id number] Closed 09/21/2010 03/20/2011 1 1 Comments Your provider has referred you to: [facility]: Lolly Murguia [phone] Dr. Alexei Hernández Please be aware that coverage of these services is subject to the terms and limitations of your health insurance plan. Call member services at your health plan with any benefit or coverage questions. Please bring the following to your appointment: Any x-rays, CTs or MRIs which have been performed. Contact the facility where they were done to arrange for warp picker prior to your scheduled appointment. Any new CT, MRI or other procedures ordered by your specialist must be performed at a [place] facility or coordinated by your clinic's referral office. List of current medications This referral request Any documents/labs given to you for this referral Encounter Details Date Type Department Care Team (Late st Contact Info) Description 09/20/2010 MyC Medical Advice [facility] Emergency Dept [address] [place] [address] Alexandro Rader MD [address] [facility] [place] [address] [place] (actinic keratosis) (Primary Dx) Social History Tobacco Use Types Packs/Day Years Used Date Smoking Tobacco: Never Alcohol Use Standard Drinks/Week Comments Yes 0 (1 standard drink = 0.6 oz pur e alcohol) Sex and Gender Information Value Date Recorded Sex Assigned at Not on file Gender Identity Not on file Sexual Orientation Not on file documented as of this encounter Miscellaneous Notes * Telephone Encounter - Cheri Baltazar - 10/12/2010 9:18 AM CDT 9.05 Called specialty clinic number they cant help, called Dr Hernández number only ,ML with my number to call Cheri Baltazar RN/Triage/LL * Telephone Encounter - Alexandro Rader - 10/12/2010 8:54 AM CDT Please call [place] today. 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 I have already told [place] I thought this was Squamous cell cancer or basal cell cancer and would need additional removal He does have an appoinment for the . Please contact his dermatologists office and speed up the process. I can speak with the ambulance driver paramedic today - I am in ER. * Telephone Encounter - Heena Devi - 09/21/2010 9:16 AM CDT Please review and respond to the My Chart message below. Thanks, Heena Devi RN documented in this encounter Plan of Treatment Not on file documented as of this encounter Visit Diagnoses Diagnosis AK (actinic keratosis)- Primary Actinic keratosis documented in this encounter Additional Health Concerns Infection Onset Date Last Indicated Resolved Time Rule Out COVID-19 07/10/2019 07/10/2019 07/12/2019 7:17 AM CDT documented as of this encounter Care Teams Manager Strategic Sourcing Relationship Specialty Start Date End Date Alexandro Rader MD PCP - General 06/26/06 08/07/12 Britney Phillips MD PCP - General Family Practice 08/08/12 02/13/17 Clarissa Gomez DO [address] [facility] [place] [address] PCP - General Family Practice 02/14/17 [place] [address] [place] [address] PCP - Assigned PCP 07/01/16 04/29/18 [place] [address] [place] [address] Assigned PCP 08/23/19 08/13/20 Faustino Cedeno MD [address] [place] [address] Radiation Oncology 02/19/19 Zaida Ayoub APRN [facility] 5[address] [place] [address] Nurse Practitioner Nurse Practitioner 02/19/19 Arturo Smith MD [address] [place] [address] [address] [place], [place] [address] Urology 02/19/19 Clarissa Gomez DO [address] [facility] [place] [address] Referring Physician Family Practice 04/06/19 Angela Reid, RN Registered Nurse Urology 04/06/19 09/11/22 [place] [address] [place] [address] Assigned PCP 07/01/16 08/22/19 Faustino Cedeno MD [address] [place] [address] Assigned Cancer Care Provider 12/18/19 09/06/20 Arturo Smith MD [address] [place] [address] [address] [place] [address] Assigned Surgical Provider 12/18/19 10/08/20 Guerrero Aguilar DPM [address] [place] [address] Assigned Musculoskeletal Provider 01/31/20 08/25/21 [place] [address] [place] [address] Assigned PCP 08/14/20 Cheri Macario PA [facility] Urology [address] [place] [address] Assigned Surgical Provider 10/09/20 08/25/21 documented as of this encounter
--- OUTSIDE RECORDS SUMMARY | 2023-03-28 13:26 | XMS_ITS | Encounter Summary ---
Author Name Unknown Organization [place] Address [address] [place] [address]. [place] [address] Care Team Providers Care Gis Instructor Name Role Phone Alexandro Rader MD Primary Care Provider [phone] Britney Phillips MD Primary Care Provider + [phone] Clarissa Gomez DO Primary Care Provider [phone] Clarissa Gomez DO Unavailable Clarissa Gomez DO Unavailable Faustino Cedeno MD Unavailable [phone] Zaida Ayoub APRN MEDICAID PLAN COMPLIANCE DIRECTOR Unavailable +[phone] Arturo Smith MD Unavailable +[phone] Clarissa Gomez DO Unavailable +[phone] Angela Reid RN Unavailable [phone] Clarissa Gomez DO Unavailable Faustino Cedeno MD Unavailable +[phone] Arturo Smith MD Unavailable +[phone] Guerrero Aguilar DPM Unavailable +[phone] Clarissa Gomez DO Unavailable Cheri Macario Unavailable +[phone] Encounter Details Date Type Department Care Team (Late st Contact Info) Description 05/06/2008 MyC Medical Advice [facility] Alexandro Rader MD [address] [facility] [place] [address] DIABETES MELLITUS TYPE II-UNCOMPL (Primary Dx) Social History Tobacco Use Types [...] as of this encounter Visit Diagnoses Diagnosis DIABETES MELLITUS TYPE II-UNCOMPL- Primary Type II or unspecified type diabetes mellitus without mention of complication, not stated as uncontrolled documented in this encounter Additional Health Concerns Infection Onset Date Last Indicated Resolved Time Rule Out COVID-19 07/10/2019 07/10/2019 07/12/2019 7:17 AM CDT documented as of this encounter Care Teams Gis Instructor Relationship Specialty Start Date End Date Alexandro Rader MD PCP - General 06/26/06 08/07/12 Britney Phillips MD PCP - General Family Practice 08/08/12 02/13/17 Clarissa Gomez DO [address] [facility] [place] [address] PCP - General Family Practice 02/14/17 [place] [address] [place] [address] PCP - Assigned PCP 07/01/16 04/29/18 [place] [address] [place] [address] Assigned PCP 08/23/19 08/13/20 Faustino Cedeno MD [address] [place] [address] Radiation Oncology 02/19/19 Zaida Ayoub APRN MEDICAID PLAN COMPLIANCE DIRECTOR [address] [place] [address] Nurse Practitioner Nurse Practitioner 02/19/19 Arturo Smith MD [address] [place] [address] 394 [place] [address] Urology 02/19/19 Clarissa Gomez DO [address] [facility] [place] [address] Referring Physician Family Practice 04/06/19 Angela Reid, RN Registered Nurse Urology 04/06/19 09/11/22 [place] [address] [place] [address] Assigned PCP 07/01/16 08/22/19 Faustino Cedeno MD [address] [place] [address] Assigned Cancer Care Provider 12/18/19 09/06/20 Arturo Smith MD [address] [place] [address] Assigned Surgical Provider 12/18/19 10/08/20 Guerrero Aguilar DPM [address] [facility] [place] [address] Assigned Musculoskeletal Provider 01/31/20 08/25/21 [place] [address] [address] [facility] [address] Assigned PCP 08/14/20 Cheri Macario PA [facility] Urology [address] [place] [address] Assigned Surgical Provider 10/09/20 08/25/21 documented as of this encounter
--- OUTSIDE RECORDS SUMMARY | 2023-03-28 13:26 | XMS_ITS | Encounter Summary ---
Author Name Unknown Organization [facility] Address [address] [place] [address]. [place] [address] Care Team Providers Care [employer] J[employer] Grinder Name Role Phone Alexandro Rader MD Primary Care Provider [phone] Britney Phillips MD Primary Care Provider [phone] Clarissa Gomez DO Primary Care Provider [phone] Clarissa Gomez DO Unavailable Clarissa Gomez DO Unavailable Faustino Cedeno MD Unavailable [phone] Zaida Ayoub APRN MARKETING RESEARCH ANALYST Unavailable Arturo Smith MD Unavailable [phone] Clarissa Gomez DO Unavailable [phone] Angela Reid RN Unavailable [phone] Clarissa Gomez DO Unavailable Faustino Cedeno MD Unavailable [phone] Arturo Smith MD Unavailable [phone] Guerrero Aguilar DPM Unavailable [phone] Clarissa Gomez DO Unavailable Cheri Macario Unavailable [phone] Encounter Details Date Type Department Care Team (Late st Contact Info) Description 12/02/2010 MyC Medical Advice [employer] Arm[place] Carter [address] [facility] [place] [phone] Alexandro Rader MD [address] [facility] [place] [address] Social History Tobacco Use Types Packs/Day Years [...] Notes * Telephone Encounter - Richa Matias - 12/04/2010 10:14 AM CDT PFT's done. Plan? Kpavelrn documented in this encounter Plan of Treatment Not on file documented as of this encounter Visit Diagnoses Not on filedocumented in this encounter Additional Health Concerns Infection Onset Date Last Indicated Resolved Time Rule Out COVID-19 07/10/2019 07/10/2019 07/12/2019 7:17 AM CDT documented as of this encounter Care Teams [employer] J[employer] Grinder Relationship Specialty Start Date End Date Alexandro Rader MD PCP - General 06/26/06 08/07/12 Britney Phillips MD PCP - General Family Practice 08/08/12 02/13/17 Clarissa Gomez DO [address] [facility] [place] [address] PCP - General Family Practice 02/14/17 [place] [address] [place] [address] PCP - Assigned PCP 07/01/16 04/29/18 [place] [address] [place] [address] Assigned PCP 08/23/19 08/13/20 Faustino Cedeno MD [address] [place] [address] Radiation Oncology 02/19/19 Zaida Ayoub APRN MARKETING RESEARCH ANALYST [address] [place] [address] Nurse Practitioner Nurse Practitioner 02/19/19 Arturo Smith MD [address] [place] [address] [address] [place], [place] [id number] MD Urology 02/19/19 Clarissa Gomez DO [address] [facility] [place] [address] Referring Physician Family Practice 04/06/19 Angela Reid, RN Registered Nurse Urology 04/06/19 09/11/22 [place] [address] [place] [address] Assigned PCP 07/01/16 08/22/19 Faustino Cedeno MD [address] [place] [address] Assigned Cancer Care Provider 12/18/19 09/06/20 Arturo Smith MD [address] [place] [id number] Assigned Surgical Provider 12/18/19 10/08/20 Guerrero Aguilar DPM [address] [facility] [place] [address] Assigned Musculoskeletal Provider 01/31/20 08/25/21 [place] [address] [place] [address] Assigned PCP 08/14/20 Cheri Macario PA [facility] [address] [place] [id number] Assigned Surgical Provider 10/09/20 08/25/21 documented as of this encounter
== END 2023-03-28 13:21 | disposition home or self-care (01) ==
PROVIDERS: PCP Nurse Practitioner Family; Visit Provider Nurse Practitioner Family
DX: E78.5 Hyperlipidemia, unspecified (principal); I10 Essential (primary) hypertension; C61 Malignant neoplasm of prostate; Z13.29 Encounter for screening for other suspected endocrine disorder
CPT/HCPCS: 80053; 80061; 82043; 82570; 84153; 84443; 85025

== ENCOUNTER 2023-04-08 07:53 | Outpatient (CLI) | payer MEDICARE, SELFPAY ==
--- NOTE | 2023-04-08 09:07 | W.ANESCHARGE ---
Anesthesia Charges Start Date/Time Anesthesia Start Date: 04/08/23 Anesthesia Start Time: 08:41 Stop Date/Time Anesthesia Stop Date: 04/08/23 Anesthesia Stop Time: 09:04
--- NOTE | 2023-04-08 12:13 | W.ANESCHARGE ---
Anesthesia Charges Start Date/Time Anesthesia Start Date: 04/08/23 Anesthesia Start Time: 08:41 Stop Date/Time Anesthesia Stop Date: 04/08/23 Anesthesia Stop Time: 09:04
== END 2023-04-08 07:54 | disposition home or self-care (01) ==
LOC: OP CLINIC 07:54
PROVIDERS: PCP Nurse Practitioner Family; Visit Provider Internal Medicine
DX: Z12.11 Encounter for screening for malignant neoplasm of colon (principal); K63.5 Polyp of colon; K57.30 Diverticulosis of large intestine without perforation or abscess without bleeding; Z86.010 Personal history of colon polyps
CPT/HCPCS: 00811; 45380; 88305; J2704

== ENCOUNTER 2024-04-09 13:57 | Outpatient (CLI) | payer MEDICARE, SELFPAY | END 2024-04-09 13:58 | disposition home or self-care (01) | PROVIDERS: PCP Nurse Practitioner Family; Visit Provider Nurse Practitioner Family | DX: E55.9 Vitamin D deficiency, unspecified (principal); I10 Essential (primary) hypertension; E11.9 Type 2 diabetes mellitus without complications; E66.3 Overweight; E56.9 Vitamin deficiency, unspecified; Z13.0 Encounter for screening for diseases of the blood and blood-forming organs and certain disorders involving the immune mechanism | CPT/HCPCS: 80053; 80061; 82043; 82570; 82607; 84443; 85025; G0103 ==

== ENCOUNTER 2024-04-13 14:55 | Outpatient (CLI) | payer MEDICARE, SELFPAY | END 2024-04-13 14:56 | disposition home or self-care (01) | PROVIDERS: PCP Nurse Practitioner Family; Visit Provider Nurse Practitioner Family | DX: E78.5 Hyperlipidemia, unspecified (principal); E11.9 Type 2 diabetes mellitus without complications; I10 Essential (primary) hypertension; Z13.21 Encounter for screening for nutritional disorder; Z13.29 Encounter for screening for other suspected endocrine disorder; Z12.5 Encounter for screening for malignant neoplasm of prostate | CPT/HCPCS: 80053; 80061; 82607; 84443; 85025; G0103 ==

== ENCOUNTER 2024-06-03 14:40 | Outpatient (CLI) | payer MEDICARE, SELFPAY ==
--- NOTE | 2024-06-03 15:00 | CRLHL7_ITS ---
For Patients: As a result of the Century Cures Act, medical imaging exams and procedure reports are released immediately into your electronic medical record. You may view this report before your referring provider. If you have questions, please contact your health care provider. XR DXA Bone Mineral Density (BMD) Reason for exam: LBP, radiculopathy. Current height (in): 66. Weight (lb): 180. Menopause age: Not applicable. Ethnicity: White. 1. Have you had a previous hip or vertebral fracture? No. 2. Have you had any fractures during your adult life which did not result from significant trauma (e.g., auto accident)? No. 3. Did either of your parents have a hip fracture? No. 4. Do you smoke? No. 5. Have you ever taken Glucocorticoids? No. 6. Do you have rheumatoid arthritis? No. 7. Do you have secondary osteoporosis? No. 8. Do you drink 3 or more alcoholic drinks per day? No. 9. Are you being treated for osteoporosis? No. 10. Have you ever taken any of the following medications: Actonel, Evista, Fosamax, Miacalcin, Reclast, Boniva, Forteo, HRT (i.e. estrogen/hormone therapy), Protelos, Prolia, Vitamin D, Calcium, other ??? please specify. ANSWER: Yes, vitamin D. 11. Do you have any of the following medical conditions: Anorexia or bulimia, asthma or emphysema, end stage renal disease, hyperparathyroidism, any seizure disorders, cancer, inflammatory bowel diseases, hysterectomy, other ??? please specify. ANSWER: Yes, cancer. 12. What was your maximum height (inches)? 67. 13. Do you perform weight bearing exercise regularly? No. 14. Do you regularly consume dairy products? Yes. 15. Do you drink caffeinated beverages? Yes. TECHNIQUE: Bone mineral density study was performed using the [employer]. FINDINGS: The results of the study expressed as bone mineral density (BMD) are as follows: Lumbar spine L2 to L4: BMD: 1.207 g/cm2. T-score: 0.8. Z-score: 1.7. Neck Left: BMD: 0.886 g/cm2. T-score: -0.3. Z-score: 0.8. Right: BMD: 0.822 g/cm2. T-score: -0.8. Z-score: 0.4. Total Left: BMD: 1.126 g/cm2. T-score: 0.6. Z-score: 1.3. Right: BMD: 1.140 g/cm2. T-score: 0.7. Z-score: 1.4. IMPRESSION: Normal bone density. Augusto Vyas M.D. Diagnostic Radiologist [email or web address] TRICIA/parris / bM/Dictated by: Augusto Vyas MD @ 06/03/2024 3:24:00 PM (Electronically Signed)
--- NOTE | 2024-06-03 15:30 | CRLHL7_ITS ---
For Patients: As a result of the Century Cures Act, medical imaging exams and procedure reports are released immediately into your electronic medical record. You may view this report before your referring provider. If you have questions, please contact your health care provider. INDICATION: Lumbar radiculopathy. TECHNIQUE : Lumbar spine MRI without contrast. COMPARISON: Lumbar spine radiographs from 04/09/2024. FINDINGS : There is a partially lumbarized S1 segment. Normal lumbar lordotic curve. Mild levoconvex lumbar curve. No recent compression fracture or marrow replacing process. Lower cord/conus signal is normal. The conus terminates at a normal location. No intradural lesion. No extraspinal soft tissue abnormalities. Discs/Endplates: Advanced disc height loss, disc desiccation and endplate remodeling at L5-S1. Mild disc height loss/disc desiccation L3-4 and L4-5. Minimal disc degeneration elsewhere. Trace type 1 Modic changes L5-S1. Findings at individual levels as follows: T12-L1: No spinal canal or neural foraminal stenosis. L1-2: No spinal canal or neural foraminal stenosis. L2-3: Mild disc bulge. Bilateral low-grade facet arthrosis. No spinal canal or neural foraminal stenosis. No spinal canal or neural foraminal stenosis. L3-4: Mild disc bulge. Bilateral low-grade facet arthrosis. No spinal canal or neural foraminal stenosis. L4-5: Moderate disc bulge with underlying osteophytic ridging. Bilateral low-grade facet arthrosis. Mild bilateral neural foraminal stenosis. No spinal canal stenosis. L5-S1: Moderate disc bulge with overlying osteophytic ridging, asymmetric to the left. Far lateral contact of the left L5 nerve root. A superimposed shallow central protrusion component. Bilateral facet arthrosis. Mild right and rizj-[id number]-cgdstbus left neural foraminal stenosis. No spinal canal stenosis. Imaged SI joints: Minimal arthrosis. Imaged sacrum: Within normal limits. IMPRESSION: 1. No acute fracture or marrow replacing process. 2. Scattered lumbar spondylosis without high-grade spinal canal/neural foraminal stenosis or compression of neural structures. 3. At L5-S1, a far lateral disc osteophyte contacts the left L5 nerve root. [id number] left neural foraminal stenosis. 4. Disc degeneration most advanced at L5-S1, where there is trace type 1 Modic changes. Dictated by Suleman Peters MD @ 06/04/2024 2:09:39 PM (Electronically Signed)
== END 2024-06-03 14:41 | disposition home or self-care (01) ==
LOC: RAD 14:42
PROVIDERS: PCP Nurse Practitioner Family; Visit Provider Nurse Practitioner Family
DX: M54.16 Radiculopathy, lumbar region (principal); M47.896 Other spondylosis, lumbar region; M48.07 Spinal stenosis, lumbosacral region; M51.379 Other intervertebral disc degeneration, lumbosacral region without mention of lumbar back pain or lower extremity pain; Z13.820 Encounter for screening for osteoporosis
CPT/HCPCS: 72148; 77080